=== PATIENT | female | born 1985 | race Caucasian/White ===

== ENCOUNTER 2020-08-05 21:13 | Emergency (ER) | payer MEDICAID, SELFPAY ==
[2020-08-05 21:40] VITALS: BP 142/104; PULSE 88; RESP 18; TEMP 36.6; O2SAT 97; BMI 63.9
--- NOTE | 2020-08-06 01:19 | CTR_ITS ---
PROCEDURE INFORMATION: Exam: CT Cervical Spine Without Contrast Exam date and time: 08/06/2020 1:31 AM Age: 35 years old Clinical indication: Radicular pain (radiculopathy); Cervical region; Patient HX: C/O lue radiculopathy w/o injury TECHNIQUE: Imaging protocol: Computed tomography images of the cervical spine without contrast. Radiation optimization: All CT scans at this facility use at least one of these dose optimization techniques: automated exposure control; mA and/or kV adjustment per patient size (includes targeted exams where dose is matched to clinical indication); or iterative reconstruction. COMPARISON: CT Cervical Spine wo* [id number] 03/05/2015 4:54 AM RADIATION DOSE METRICS: Total DLP (mGy-cm): 765.99 FINDINGS: Bones/joints: No acute fracture. Normal alignment. Discs/Spinal canal/Neural foramina: No significant disc protrusion. No severe spinal canal stenosis. No significant neural foraminal narrowing. Lungs: Lung apices are normal. Soft tissues: Unremarkable. CT/CT cervical spin wo con* [id number] IMPRESSION: No acute findings. Radiation Dose CTDIVOL = (mGy): DLP = 765.99 (mGy-cm)
--- NOTE | 2020-08-06 01:19 | XRR_ITS ---
PROCEDURE INFORMATION: Exam: XR Left Shoulder Exam date and time: 08/06/2020 1:38 AM Age: 35 years old Clinical indication: Pain; Shoulder; Left; Patient HX: C/O lue radiculopathy w/o injury TECHNIQUE: Imaging protocol: XR Left shoulder. Views: 2 or more views. COMPARISON: No relevant prior studies available. FINDINGS: Bones/joints: Normal. Soft tissues: Normal. XR/XR shoulder LT min 2V* [id number] IMPRESSION: No acute findings.
[2020-08-06 01:30] VITALS: RESP 20; O2SAT 98
[2020-08-06] MEDS: ondansetron 4 MG Tablet PO (01:30)
[2020-08-06] MEDS: HYDROmorphone 1 mg/mL INJ 1 mL 2 MG IM (01:30)
[2020-08-06] MEDS: predniSONE 20 mg Tablet 60 MG PO (02:32)
[2020-08-06] MEDS: HYDROcodone-acetaminophen 5-325 mg Tablet 1 TAB PO (02:35)
[2020-08-06 02:36] VITALS: BP 128/64; PULSE 84; RESP 18; O2SAT 98
--- NOTE | 2020-08-06 04:36 | ED_ITS ---
HPI - Extremity Problem General: Chief complaint: Extremity Problem,Nontraumatic Stated complaint: LEFT ARM PAIN Time Seen by Provider: 08/06/20 01:00 History of Present Illness: HPI Narrative: 35-year-old female complains that after waking up in the morning, she experienced left arm and forearm pain. She states it is a radiating pain. She has tingling in her fingertips. She denies any chest pain. The pain is reproducible on movement of the arm, and turning her neck she took ibuprofen and Tylenol and used a sling without relief. MD Complaint: extremity pain Onset (ago): hour(s) Pain Consistency: constant Location: left and upper extremity Quality: burning, stabbing and aching Radiation: distal Relieving factors: nothing Exacerbating factors: range of motion Associated symptoms: Deny chest pain, fever(s), rash or short of breath Review of Systems Const: Denies: fever(s) or chills Card: Denies: chest pain Resp: Denies: dyspnea, productive cough or non-productive cough GI: Denies: abdominal pain or vomiting Skin/Breast: Denies: rash Neuro: Reports: numbness in extremities; Denies: headache(s) or weakness in extremities PFSH ED PFSH: Social History (Updated 07/12/19 @ 17:00 by Skye Perez LPN) Smoking and tobacco status: former smoker Alcohol intake: never Physical Exam Const: GENERAL APPEARANCE: in distress and anxious ORIENTATION/CONSCIOUSNESS: Yes oriented to person, Yes oriented to place and Yes oriented to time HENMT: COMMON NORMALS: normocephalic, external ears normal and Normal external nose present HEAD & SCALP: normocephalic FACE & SINUS: normal facial exam NOSE: Normal external nose present and No nasal discharge present EXTERNAL EAR: Yes external ears normal Eye: COMMON NORMALS: Equal, round and reactive pupils present, EOMs intact bilaterally and conjunctivae normal EYELID: eyelids normal CONJUNCTIVA: Yes conjunctivae normal PUPIL: Yes Equal, round and reactive pupils present Neck/C-Spine: COMMON NORMALS: full ROM GENERAL: No tracheal deviation CERVICAL SPINE: Yes normal cervical lordosis, Yes pain with cervical ROM, Yes Cervical spine tenderness, No step off deformity, Yes Paracervical muscle tenderness, No Paracervical spasm, Yes Trapezius muscle tenderness and Yes other (Positive Spurling's test on the left) Chest: COMMONS NORMALS: normal inspection of the chest CHEST: No tenderness Resp: COMMON NORMALS: clear to auscultation bilaterally EFFORT & INSPECTION: No tachypneic, No respiratory distress, No retractions, No uses accessory muscles and No tracheal deviation AUSCULTATION: clear to auscultation bilaterally, no rhonchi, no wheezes and lung sounds not diminished Cardio: COMMON NORMALS: regular rate and regular rhythm RATE: regular rate RHYTHM: regular rhythm HEART SOUNDS: no murmurs PERIPHERAL PULSES: radial pulses present GI: INSPECTION: No abdominal distension AUSCULTATION: No Hyperactive bowel sounds present and No Hypoactive bowel sounds present PALPATION: No Guarding due to palpation present (GI) and No Rigid due to palpation PERCUSSION: no dullness to percussion and no tympanic to percussion Neuro: SENSORIUM/ORIENTATION: Yes oriented to person, Yes oriented to place and Yes oriented to time Psych: COMMON NORMALS: mental status grossly normal Skin: COMMON NORMALS: no rashes or lesions noted GENERAL SKIN EXAM: no rashes or lesions noted Course Vital Signs: Vital signs: Vital Signs Temperature 97.8 F 08/05/20 21:40 Pulse Rate 84 08/06/20 02:36 Respiratory Rate 18 08/06/20 02:36 Blood Pressure 128/64 08/06/20 02:36 Pulse Oximetry 98 08/06/20 02:36 MDM - Extremity (Nontraumatic) MDM Narrative: Medical decision making narrative: Symptoms are consistent with cervical radiculopathy. They are reproducible on Spurling's test. X-ray of the shoulder is negative. CT of the cervical spine does not reveal any severe stenosis or large disc protrusion. Her sensation is intact. She is not overly weak. She will be prescribed steroids, and pain medication for close outpatient follow-up. Discharge Plan Discharge Patient Disposition: Home Clinical Impression: Cervical radiculitis Condition: Stable Prescriptions: New Medrol (Rehan) 4 mg tablets,dose pack See Rx Instructions .ROUTE .COMPLEX Qty: 21 RF: 0 hydrocodone-acetaminophen 5-325 mg tablet 1 tab PO TID PRN (Reason: pain) Qty: 10 RF: 0 Discharge Orders: Discharge ED (Routine); Ordered 08/06/20 Ordered By: Bridger Israel Discharge Diet: Advance as tolerated Discharge Activity: Increase activity as tolerated Patient Instructions: Cervical Radiculopathy (ED), Opioid Safety Coding Level of Care Code ED Stand Up Comedian for Fannie Gómez
== END 2020-08-06 02:37 | disposition home or self-care (01) ==
PROVIDERS: Emergency Provider Emergency Medicine
DX: M54.12 Radiculopathy, cervical region (principal); Z87.891 Personal history of nicotine dependence
CPT/HCPCS: 72125; 73030; 96372; 99283; J1170; J7512; Q0162

== ENCOUNTER 2020-09-30 12:59 | Emergency (ER) | payer MEDICAID, SELFPAY ==
[2020-09-30 13:07] VITALS: BP 138/83; PULSE 88; RESP 18; TEMP 36.5; O2SAT 100; BMI 63.0
--- NOTE | 2020-09-30 13:18 | USR_ITS ---
PROCEDURE INFORMATION: Exam: US Duplex Lower Extremity Veins, Bilateral Exam date and time: 09/30/2020 1:41 PM Age: 35 years old Clinical indication: Edema, localized; Lower extremity, bilateral; Additional info: Leg edema TECHNIQUE: Imaging protocol: Real-time duplex ultrasound of the extremities with 2-D brown scale, color Doppler flow and spectral waveform analysis with image documentation. Complete exam focused on the bilateral lower extremity veins. COMPARISON: No relevant prior studies available. FINDINGS: Right deep veins: Unremarkable. The common femoral, femoral, proximal profunda femoral, popliteal, posterior tibial and peroneal veins are patent without thrombus. Normal Doppler waveforms. Normal compressibility and/or augmentation response. Right superficial veins: Saphenofemoral junction is patent without thrombus. Left deep veins: Unremarkable. The common femoral, femoral, proximal profunda femoral, popliteal, posterior tibial and peroneal veins are patent without thrombus. Normal Doppler waveforms. Normal compressibility and/or augmentation response. Left superficial veins: Saphenofemoral junction is patent without thrombus. Soft tissues: Subcutaneous edema in the calves. US/CV venous duplex [facility] [id number] IMPRESSION: No sonographic evidence of deep vein thrombosis.
--- NOTE | 2020-09-30 13:19 | W.ED.EXTPRO ---
HPI - Extremity Problem General: Chief complaint: Extremity Problem,Nontraumatic Stated complaint: BLE, Pain,swelling, difficulty walking Time Seen by Provider: 09/30/20 13:07 History of Present Illness: HPI Narrative: 35-year-old female presents emergency room complaining of swelling in her feet. About 3 days ago. She denies any fever sweats chills chest pain or shortness of breath no history of congestive heart failure. No history of DVT or PE. She states she has had this before and was related to fluid retention. MD Complaint: extremity pain and extremity swelling Onset (ago): day(s) Pain Consistency: constant Location: left, right and lower extremity Quality: aching Radiation: distal Relieving factors: immobilization and elevation Exacerbating factors: weight bearing and walking Associated symptoms: Reports arthralgias and myalgias; Deny chest pain, fever(s), rash or short of breath Review of Systems Const: Denies: fever(s) ENMT: Denies: throat pain, ear or mastoid pain, nasal discharge or nasal congestion Card: Denies: chest pain Resp: Denies: dyspnea, productive cough or non-productive cough GI: Denies: abdominal pain, nausea, vomiting, hematemesis, coffee ground emesis, diarrhea, constipation, bloating, hematochezia or melena : Denies: flank pain, difficulty voiding, dysuria, urinary frequency or urinary urgency Skin/Breast: Denies: rash PFSH ED PFSH: Social History Smoking and tobacco status: former smoker Alcohol intake: never Female Reproductive History: Spontaneous abortions: No Physical Exam Const: COMMON NORMALS: no acute distress GENERAL APPEARANCE: cooperative and comfortable ORIENTATION/CONSCIOUSNESS: Yes awake, Yes oriented to person, Yes oriented to place and Yes oriented to time HENMT: COMMON NORMALS: normocephalic, atraumatic and hearing grossly normal bilaterally HEAD & SCALP: normocephalic and atraumatic Neck/C-Spine: COMMON NORMALS: no JVD Resp: COMMON NORMALS: normal respiratory effort, No retractions, No use of accessory muscles and clear to auscultation bilaterally AUSCULTATION: clear to auscultation bilaterally Cardio: COMMON NORMALS: no JVD, regular rate, regular rhythm and No murmurs present (Cardio) RATE: regular rate RHYTHM: regular rhythm GI: COMMON NORMALS: Soft to palpation and No hepatosplenomegaly present AUSCULTATION: Yes normoactive bowel sounds PALPATION: Yes Soft to palpation, No Tenderness to palpation present (GI), No Guarding due to palpation present (GI) and Yes No hepatosplenomegaly present Extremity: GENERAL: Yes edema (2 bilateral lower extremity edema) Neuro: SENSORIUM/ORIENTATION: Yes oriented to person, Yes oriented to place and Yes oriented to time Skin: COMMON NORMALS: no rashes or lesions noted GENERAL SKIN EXAM: no rashes or lesions noted Course Vital Signs: Vital signs: Vital Signs Temperature 97.7 F 09/30/20 13:07 Pulse Rate 72 09/30/20 14:54 Respiratory Rate 25 H 09/30/20 14:54 Blood Pressure 180/90 09/30/20 14:54 Pulse Oximetry 100 09/30/20 14:54 MDM - Extremity (Nontraumatic) MDM Narrative: Medical decision making narrative: Ultrasound negative. There is no sign of cellulitis on the feet. White count is little bit elevated but she has not had any other issues no other signs of infection complaints. Gave her 60 Lasix here and discharged home on 80 Lasix p.o. daily have her follow-up with her primary care doctor next week we will also add potassium supplement 20 mEq daily. Return if she has further problems. Also encouraged her to follow-up with her primary care doctor she has what appears to be almost like a malar rash she should have further evaluation for rheumatologic disorder. Lab Data: Labs: Lab Results 09/30/20 09/30/20 09/30/20 Range/Units 13:52 14:55 14:55 WBC 17.4 H (4.0-10.0) 10^3/ uL RBC 4.22 (4.1-5.3) 10^6/u L Hgb 11.8 (11.5-15.3) g/dL Hct 39.4 (37.0-47.0) % MCV 93.4 (81-99) fL MCH 28.0 (28.0-34.0) pg MCHC 29.9 L (30.0-36.0) g/dL RDW 13.1 (12.1-15.1) % Plt Count 347 (130-400) 10^3/c mm MPV 9.9 (7.4-10.4) fL Neut % (Auto) 68.3 % Lymph % (Auto) 23.9 % [place] % (Auto) 5.4 % Eos % (Auto) 1.2 % Baso % (Auto) 0.6 % Neut # (Auto) 11.88 H (1.8-7.7) 10^3/u L Lymph # (Auto) 4.1 (0.8-4.8) 10^3/u L [place] # (Auto) 0.9 (0.2-0.9) 10^3/u L Eos # (Auto) 0.2 (0.0-0.8) 10^3/u L Baso # (Auto) 0.1 (0.0-0.1) 10^3/u L Nucleated RBC % (a uto) 0 % Nucleated RBCs # 0.0 /100WBC Sodium 137 (136-145) mmol/L Potassium 3.6 (3.5-5.1) mmol/L Chloride 104 (98-107) mmol/L Carbon Dioxide 20 L (22-29) mmol/L Anion Gap 16.6 (5-19) BUN 8 (6-20) mg/dL Creatinine 0.6 (0.5-0.9) mg/dL GFR Calculation 113.8 (90-130) mL/min Glucose 131 H (65-115) mg/dL Calculated Osmolal ity 284 L (285-295) mOsm/k g Lactate 1.0 (0.5-2.2) mmol/L Calcium 8.6 (8.5-10.5) mg/dL Total Bilirubin 0.6 (0.15-1.2) mg/dL AST 14 (0-32) U/L ALT 12 (0-33) U/L Alkaline Phosphata se 81 (35-105) IU/L Total Protein 6.7 (6.6-8.7) g/dL Albumin 3.5 (3.5-5.2) g/dL Globulin 3.2 (1.3-4.6) g/dL Discharge Plan Discharge Patient Disposition: Home Clinical Impression: Lower extremity edema Condition: Stable Prescriptions: New Lasix 80 mg tablet 80 mg PO DAILY Qty: 30 RF: 0 potassium chloride 20 mEq tablet extended release 20 meq PO DAILY Qty: 30 RF: 0 Discontinued furosemide 40 mg tablet 40 mg PO DAILY RF: 0 No Action ibuprofen 800 mg tablet 800 mg PO Q8H PRN (Reason: Pain) RF: 0 meloxicam 15 mg tablet 15 mg PO DAILY RF: 0 sucralfate 1 gram tablet 1 g PO QID RF: 0 famotidine 40 mg tablet 40 mg PO BEDTIME RF: 0 omeprazole 40 mg capsule,delayed release(DR/EC) 40 mg PO DAILY PRN (Reason: Heartburn) RF: 0 gabapentin 300 mg capsule 300 mg PO BID RF: 0 hydroxyzine pamoate 25 mg capsule 25 mg PO BEDTIME RF: 0 olopatadine 0.2 % drops 1 drp ophthalmic (eye) BID RF: 0 cetirizine-pseudoephedrine 5-120 mg tablet extended release 12 hr 1 tab PO BID RF: 0 Discharge Orders: Discharge ED (Routine); Ordered 09/30/20 Ordered By: Arian De Jesus Referrals: Charlie Stephens MD [Primary Care Provider] - Discharge Diet: Usual diet Discharge Activity: Resume usual activity Patient Instructions: Opioid Safety Coding Level of Care Code ED Receiving Team Member for Chg Fwd Exam Comprehensive
[2020-09-30 14:21] LABS: Alanine Aminotransferase 12 U/L (0-33); Albumin Level 3.5 g/dL (3.5-5.2); Alkaline Phosphatase 81 IU/L (35-105); Aspartate Amino Transferase 14 U/L (0-32); Blood Urea Nitrogen 8 mg/dL (6-20); Calcium 8.6 mg/dL (8.5-10.5); Carbon Dioxide 20 mmol/L (22-29); Chloride 104 mmol/L (98-107); Globulin 3.2 g/dL (1.3-4.6); Glomerular Filtration Rate 113.8 mL/min (90-130); Glucose 131 mg/dL (65-115); Osmolality Calculated 284 mOsm/kg (285-295); Sodium 137 mmol/L (136-145); Total Bilirubin 0.6 mg/dL (0.15-1.2); Total Protein 6.7 g/dL (6.6-8.7)
[2020-09-30 14:45] LABS: Anion Gap 16.6 (5-19); Potassium 3.6 mmol/L (3.5-5.1)
[2020-09-30 14:54] VITALS: BP 180/90; PULSE 72; RESP 25; O2SAT 100
[2020-09-30 15:09] LABS: Basophils # 0.1 10^3/uL (0.0-0.1); Basophils % 0.6 %; Eosinophils # 0.2 10^3/uL (0.0-0.8); Eosinophils % 1.2 %; Hematocrit 39.4 % (37.0-47.0); Hemoglobin 11.8 g/dL (11.5-15.3); Lymphocytes # 4.1 10^3/uL (0.8-4.8); Lymphocytes % 23.9 %; Mean Corpuscular HGB Conc 29.9 g/dL (30.0-36.0); Mean Corpuscular Volume 93.4 fL (81-99); Mean Platelet Volume 9.9 fL (7.4-10.4); Monocytes # 0.9 10^3/uL (0.2-0.9); Monocytes % 5.4 %; Neutrophils # 11.88 10^3/uL (1.8-7.7); Neutrophils % 68.3 %; Nucleated Red Blood Cells % 0 %; Platelet Count 347 10^3/cmm (130-400); Red Blood Count 4.22 10^6/uL (4.1-5.3); Red Cell Distribution Width 13.1 % (12.1-15.1); White Blood Count 17.4 10^3/uL (4.0-10.0)
[2020-09-30] MEDS: FUROsemide 10 mg/mL SDV 10mL 60 MG IVP (15:15)
[2020-09-30 15:46] VITALS: BP 180/90; PULSE 72; RESP 25; O2SAT 100
== END 2020-09-30 15:47 | disposition home or self-care (01) ==
PROVIDERS: Emergency Provider Family Medicine; PCP Internal Medicine Cardiovascular Disease
DX: R60.0 Localized edema (principal); Z87.891 Personal history of nicotine dependence
CPT/HCPCS: 36415; 80053; 83605; 85025; 93970; 96374; 99284; J1940

== ENCOUNTER → 2020-10-21 17:12 | Outpatient (BNVA) | payer MEDICAID, SELFPAY | PROVIDERS: PCP Internal Medicine Cardiovascular Disease; Visit Provider Emergency Medicine | DX: R60.9 Edema, unspecified (principal); R21 Rash and other nonspecific skin eruption; E66.9 Obesity, unspecified | CPT/HCPCS: 80053; 83880; 84443; 86160; 86162; 86235; 86255; 86376; 86431 ==

== ENCOUNTER → 2021-08-13 11:46 | Outpatient (BNVA) | payer MEDICAID, SELFPAY | PROVIDERS: PCP Internal Medicine Cardiovascular Disease; Visit Provider Emergency Medicine | DX: A08.4 Viral intestinal infection, unspecified (principal); J10.1 Influenza due to other identified influenza virus with other respiratory manifestations; R68.89 Other general symptoms and signs | CPT/HCPCS: 87400 ==

== ENCOUNTER → 2021-10-13 15:27 | Outpatient (BNVA) | payer MEDICAID, SELFPAY | PROVIDERS: PCP Internal Medicine Cardiovascular Disease | DX: R39.9 Unspecified symptoms and signs involving the genitourinary system (principal); B37.9 Candidiasis, unspecified; N39.0 Urinary tract infection, site not specified | CPT/HCPCS: 81000; 87086 ==

== ENCOUNTER → 2021-11-23 10:13 | Outpatient (BNVA) | payer MEDICAID, SELFPAY | PROVIDERS: PCP Internal Medicine Cardiovascular Disease; Visit Provider Emergency Medicine | DX: Z20.822 Contact with and (suspected) exposure to COVID-19 (principal); B34.9 Viral infection, unspecified | CPT/HCPCS: 87635 ==

== ENCOUNTER → 2022-01-03 09:38 | Outpatient (BNVA) | payer MEDICAID, SELFPAY | PROVIDERS: PCP Internal Medicine Cardiovascular Disease; Visit Provider Emergency Medicine | DX: R07.81 Pleurodynia (principal); W19.XXXA Unspecified fall, initial encounter | CPT/HCPCS: 71101 ==

== ENCOUNTER 2022-02-12 20:41 | Emergency (ER) | payer MEDICAID, SELFPAY ==
[2022-02-12 20:45] VITALS: BP 129/84; PULSE 68; RESP 18; TEMP 36.5; O2SAT 98; BMI 59.8
[2022-02-12 23:27] LABS: Adenovirus Not Detected (NOT DETECT); Chlamydia Pneumoniae Not Detected (NOT DETECT); Coronavirus 229E,HKU1,NL63,OC4 Not Detected (NOT DETECT); Human Metapneumovirus Not Detected (NOT DETECT); Human Rhinovirus/Enterovirus Not Detected (NOT DETECT); Influenza A Not Detected (NOT DETECT); Influenza A H1 Not Detected (NOT DETECT); Influenza A H1-2009 Not Detected (NOT DETECT); Influenza A H3 Not Detected (NOT DETECT); Influenza B Not Detected (NOT DETECT); Mycoplasma Pneumoniae Not Detected (NOT DETECT); Parainfluenza Virus Type 1 Not Detected (NOT DETECT); Parainfluenza Virus Type 2 Not Detected (NOT DETECT); Parainfluenza Virus Type 3 Not Detected (NOT DETECT); Parainfluenza Virus Type 4 Not Detected (NOT DETECT); Respiratory Syncytial Virus A Not Detected (NOT DETECT); Respiratory Syncytial Virus B Not Detected (NOT DETECT); SARS-COV-2 Not Detected (NOT DETECT)
== END 2022-02-12 23:17 | disposition left against medical advice (07) ==
LOC: ER 20:57
PROVIDERS: Emergency Medicine; Emergency Provider Family Medicine; PCP Internal Medicine Cardiovascular Disease
DX: Z53.21 Procedure and treatment not carried out due to patient leaving prior to being seen by health care provider (principal)
CPT/HCPCS: 80053; 84443; 85025; 86160; 86162; 86235; 86255; 86376; 86431; 87635; 99283

== ENCOUNTER 2022-02-25 12:34 | Emergency (ER) | payer MEDICAID, SELFPAY ==
[2022-02-25 12:48] VITALS: BP 156/110; PULSE 82; RESP 18; TEMP 36.5; O2SAT 98
--- NOTE | 2022-02-25 12:52 | W.ED.FEVER ---
HPI - Fever General: Chief Complaint: Fever Stated Complaint: Sore throat, fever Time Seen by Provider: 02/25/22 12:51 History of Present Illness: Patient is a 36-year-old female comes to the ED with a sore throat. Symptoms started approximately 2 days ago. She says she has had a sore throat and a fever as well. She rates her sore throat pain a 10 out of 10. Denies any known sick contacts. Denies any nasal congestion or cough. Endorses having a couple episodes of emesis since start of symptoms as well. Associated symptoms: Reports vomiting; Deny abdominal pain, flank pain, chills, chest pain, diarrhea, dysuria, headache(s), nasal congestion or nausea Review of Systems Const: Reports: fever(s); Denies: chills or fatigue Eyes: Denies: change in vision or eye discomfort ENMT: Reports: throat pain; Denies: odynophagia, nasal discharge or nasal congestion Card: Denies: chest pain, palpitations, edema, swelling of feet/ankles, dyspnea on exertion or orthopnea Resp: Denies: dyspnea, productive cough or non-productive cough GI: Reports: vomiting; Denies: abdominal pain, nausea, diarrhea, constipation or hematochezia : Denies: flank pain, dysuria or hematuria Musc: Denies: neck pain, back pain or extremity swelling Skin/Breast: Denies: rash or new lesions Neuro: Denies: headache(s), numbness in extremities or weakness in extremities PFS ED PFSH: Medical History (Updated 02/26/22 @ 16:51 by FAUSTO Villa) Hypothyroid No pertinent family history Surgical History (Updated 02/26/22 @ 16:51 by FAUSTO Villa) History of appendectomy History of cholecystectomy Social History Smoking and tobacco status: never smoked Alcohol intake: never Female Reproductive History: Date of last menstrual period: 02/24/22 Spontaneous abortions: No Physical Exam Const: COMMON NORMALS: no acute distress, patient oriented x3 and alert GENERAL APPEARANCE: cooperative and comfortable HENMT: COMMON NORMALS: normocephalic HEAD & SCALP: normocephalic MOUTH: Normal oral and palatal mucosa present THROAT: posterior oropharynx normal and uvula midline Neck/C-Spine: COMMON NORMALS: supple GENERAL: Yes normal visual inspection Resp: COMMON NORMALS: normal respiratory effort, No retractions, No use of accessory muscles and clear to auscultation bilaterally AUSCULTATION: clear to auscultation bilaterally Cardio: COMMON NORMALS: regular rate, regular rhythm, S1 normal heart sound present, S2 normal heart sound present, No gallops present (Cardio), No clicks present (Cardio), No murmurs present (Cardio) and Peripheral pulses 2+ throughout RATE: regular rate RHYTHM: regular rhythm HEART SOUNDS: S1 normal heart sound present and S2 normal heart sound present PERIPHERAL PULSES: Peripheral pulses 2+ throughout GI: COMMON NORMALS: Normal to inspection, nondistended, normoactive bowel sounds present, Soft to palpation, non-tender and no masses PALPATION: Yes Soft to palpation : COMMON NORMALS: Yes no CVA tenderness BLADDER/KIDNEY EXAM: Yes no CVA tenderness Back/Pelvis: COMMON NORMALS: no CVA tenderness Extremity: COMMON NORMALS: normal to inspection Neuro: COMMON NORMALS: patient oriented x3 SENSORIUM/ORIENTATION: Yes alert GAIT: Yes Normal gait present Skin: GENERAL SKIN EXAM: dry skin Course Vital Signs: Vital signs: Vital Signs Temperature 97.7 F 02/25/22 12:48 Pulse Rate 82 02/25/22 12:48 Respiratory Rate 18 02/25/22 12:48 Blood Pressure 156/110 02/25/22 12:48 Pulse Oximetry 98 02/25/22 12:48 Oxygen Delivery Me thod 02/25/22 12:48 MDM - Fever Medical Decision Making Patient is a 36-year-old female comes to the ED with a sore throat and fever. Symptoms started 2 days ago. Vitals are stable and patient is afebrile here in the ED. Exam is benign. Strep test is negative. Patient was diagnosed with pharyngitis and was discharged home. Told to follow-up with PCP in the next week for reevaluation. Return to ED precautions given. Patient understood and agreed with plan. Lab Data Laboratory Results Group A Strep Rapid Negative (Negative) 02/25/22 13:03 Discharge Plan Discharge Patient Disposition: Home Clinical Impression: Pharyngitis Qualifiers: Pharyngitis/tonsillitis etiology: unspecified etiology Qualified Code(s): J02.9 - Acute pharyngitis, unspecified Condition: Stable Prescriptions: New cephalexin 500 mg capsule 500 mg PO Q6H 7 Days Qty: 28 0RF No Action ibuprofen 600 mg tablet 600 mg PO Q8H PRN (Reason: pain) Qty: 30 0RF tramadol 50 mg tablet 50 mg PO Q6H PRN (Reason: pain) Qty: 20 0RF metformin 500 mg tablet 500 mg PO BID ondansetron 4 mg tablet,disintegrating 4 mg PO Q6H PRN (Reason: nausea and vomiting) Qty: 12 0RF Rx Instructions: 340b please levothyroxine 50 mcg capsule 50 mcg PO DAILY Qty: 30 1RF Discharge Orders: Discharge ED (Routine); Ordered 02/25/22 Ordered By: Charlie Li Referrals: Charlie Stephens MD [Primary Care Provider] - Discharge Diet: Regular Discharge Activity: Increase activity as tolerated Patient Instructions: Pharyngitis (ED) Activity Restrictions/Additional Instructions: Follow-up with medical provider as directed. Take medications as prescribed. Return to the ER or your medical provider if condition worsens. Please read and understand discharge instructions. Thank you for choosing [facility] for your healthcare needs today. Please realize this is an emergency room and that we are providing you with a medical screening exam and this may not be complete and all inclusive of all the testing and or work up that you may need to determine your ailment or severity of your illness. It is very important that you follow up as instructed or that you return to the Emergency Department should you have concerns or if your condition changes or worsens in any way. Coding Level of Care Code ED Reduction Plant Supervisor for Fannie Gómez Exam Comprehensive
[2022-02-25 14:18] LABS: Rapid Strep A Test Negative (Negative)
== END 2022-02-25 14:51 | disposition home or self-care (01) ==
PROVIDERS: Emergency Provider Physician Assistant; PCP Internal Medicine Cardiovascular Disease
DX: J02.9 Acute pharyngitis, unspecified (principal); Z79.84 Long term (current) use of oral hypoglycemic drugs
CPT/HCPCS: 87081; 87880; 99283

== ENCOUNTER 2022-11-04 15:00 | Emergency (ER) | payer MEDICAID, SELFPAY ==
[2022-11-04 15:04] VITALS: BP 134/83; PULSE 77; RESP 14; TEMP 36.3; O2SAT 98; BMI 49.6
[2022-11-04 16:09] LABS: HCG Qualitative Urine. Negative (Negative)
[2022-11-04 16:09] LABS: Basophils # 0.1 10^3/uL (0.0-0.1); Basophils % 0.2 %; Hemoglobin 11.6 g/dL (11.5-15.3); Lymphocytes # 2.2 10^3/uL (0.8-4.8); Lymphocytes % 8.8 %; Mean Corpuscular HGB Conc 32.2 g/dL (30.0-36.0); Mean Corpuscular Hemoglobin 29.1 pg (28.0-34.0); Mean Corpuscular Volume 90.2 fl (81-99); Mean Platelet Volume 10.8 fL (7.4-10.4); Monocytes # 1.1 10^3/uL (0.2-0.9); Monocytes % 4.6 %; Neutrophils # 21.14 10^3/uL (1.8-7.7); Neutrophils % 85.2 %; Nucleated Red Blood Cells % 0 %; Platelet Count 305 10^3/cmm (130-400); Red Blood Count 3.99 10^6/uL (4.1-5.3); Red Cell Distribution Width 13.2 % (12.1-15.1); White Blood Count 24.8 10^3/uL (4.0-10.0)
--- NOTE | 2022-11-04 16:17 | CTR_ITS ---
PROCEDURE INFORMATION: Exam: CT Head Without Contrast Exam date and time: 11/04/2022 4:23 PM Age: 37 years old Clinical indication: Pain; Weakness, extremity; Left; Headache; Additional info: L arm weakness TECHNIQUE: Imaging protocol: Computed tomography of the head without contrast. Axial, coronal and sagittal reformatted images were created and reviewed. Radiation optimization: All CT scans at this facility use at least one of these dose optimization techniques: automated exposure control; mA and/or kV adjustment per patient size (includes targeted exams where dose is matched to clinical indication); or iterative reconstruction. REPORTING DATA: Count of CT and Cardiac NM exams in prior 12 months: This patient has received 0 known CTs and 0 known cardiac nuclear medicine studies in the 12 months prior to the current study. COMPARISON: CT cervical spin wo con* [id number] 08/06/2020 1:53 AM RADIATION DOSE METRICS: Total DLP (mGy-cm): 1021 FINDINGS: Brain: No CT evidence of acute intracranial hemorrhage or acute territorial infarction. No significant mass effect or midline shift. Basal cisterns patent. Cerebral ventricles: Normal in size and configuration. Paranasal sinuses: Unremarkable. No fluid levels. Mastoid air cells: Grossly unremarkable. Bones/joints: No acute osseous abnormality. Soft tissues: Grossly unremarkable. CT/CT head wo con* [id number] IMPRESSION: No CT evidence of acute intracranial pathology.
--- NOTE | 2022-11-04 16:17 | CTR_ITS ---
PROCEDURE INFORMATION: Exam: CT Maxillofacial Without Contrast Exam date and time: 11/04/2022 4:23 PM Age: 37 years old Clinical indication: Mass, lump, or swelling; Other: Left periorbital infection; Additional info: L periorbital infection TECHNIQUE: Imaging protocol: Computed tomography of the face without contrast. Axial, coronal and sagittal reformatted images were created and reviewed. REPORTING DATA: Count of CT and Cardiac NM exams in prior 12 months: This patient has received 0 known CTs and 0 known cardiac nuclear medicine studies in the 12 months prior to the current study. COMPARISON: CT cervical spin wo con* [id number] 08/06/2020 1:53 AM RADIATION DOSE METRICS: Total DLP (mGy-cm): 542.8 FINDINGS: Orbital cavities: Orbits are normal. Globes are unremarkable. Bones/joints: No acute fracture. Paranasal sinuses: Mild left frontal sinus mucosal thickening. No air-fluid levels. Soft tissues: Unremarkable. Dental: Poor dentition. CT/CT facial bones wo con* [id number] IMPRESSION: 1. No acute pathology. 2. Additional findings, as above.
--- NOTE | 2022-11-04 16:19 | W.ED.BACK ---
HPI - Back Pain/Injury General: Chief Complaint: Back Pain/Injury Stated Complaint: possible infection Time Seen by Provider: 11/04/22 15:07 Source: patient Mode of arrival: ambulatory [facility] ED PFSH: Medical History Hypothyroid No pertinent family history Surgical History History of appendectomy History of cholecystectomy Social History Smoking and tobacco status: never smoked Alcohol intake: never Substance/Drug Use: never Female Reproductive History: Spontaneous abortions: No Course Vital Signs: Vital signs: Vital Signs Temperature 97.4 F L 11/04/22 15:04 Pulse Rate 77 11/04/22 15:04 Respiratory Rate 14 11/04/22 15:04 Blood Pressure 134/83 11/04/22 15:04 Pulse Oximetry 98 11/04/22 15:04 Oxygen Delivery Me thod Room Air 11/04/22 15:04 MDM - Back Pain/Injury Labs 11/04/22 15:55 11/04/22 15:55 Laboratory Results WBC 24.8 10^3/uL (4.0-10.0) H 11/04/22 15:55 RBC 3.99 10^6/uL (4.1-5.3) L 11/04/22 15:55 Hgb 11.6 g/dL (11.5-15.3) 11/04/22 15:55 Hct 36.0 % (37.0-47.0) L 11/04/22 15:55 MCV 90.2 fl (81-99) 11/04/22 15:55 MCH 29.1 pg (28.0-34.0) 11/04/22 15:55 MCHC 32.2 g/dL (30.0-36.0) 11/04/22 15:55 RDW 13.2 % (12.1-15.1) 11/04/22 15:55 Plt Count 305 10^3/cmm (130-400) 11/04/22 15:55 MPV 10.8 fL (7.4-10.4) H 11/04/22 15:55 Neut % (Auto) 85.2 % 11/04/22 15:55 Lymph % (Auto) 8.8 % 11/04/22 15:55 [place] % (Auto) 4.6 % 11/04/22 15:55 Eos % (Auto) 0.0 % 11/04/22 15:55 Baso % (Auto) 0.2 % 11/04/22 15:55 Neut # (Auto) 21.14 10^3/uL (1.8-7.7) H 11/04/22 15:55 Lymph # (Auto) 2.2 10^3/uL (0.8-4.8) 11/04/22 15:55 Stephens # (Auto) 1.1 10^3/uL (0.2-0.9) H 11/04/22 15:55 Eos # (Auto) 0.0 10^3/uL (0.0-0.8) 11/04/22 15:55 Baso # (Auto) 0.1 10^3/uL (0.0-0.1) 11/04/22 15:55 Nucleated RBC % (auto) 0 % 11/04/22 15:55 Nucleated RBCs # 0.0 /100WBC 11/04/22 15:55 ESR Cancelled 11/04/22 15:55 HCG, Qual Negative (Negative) 11/04/22 15:25 Discharge Plan Discharge Condition: Stable Prescriptions: No Action metformin 500 mg tablet 500 mg PO BID fexofenadine 60 mg tablet 60 mg PO BID Qty: 60 2RF olopatadine [Pataday Twice Daily Relief] 0.1 % drops 1 drp ophthalmic (eye) BID PRN (Reason: allergy eye symptoms) Qty: 5 2RF Rx Instructions: separate doses by at least 6-8 hours Referrals: Gordo Shanks, [Primary Care Provider] - Coding Level of Care Code ED Extension Service Specialist for Fannie Gómez
--- NOTE | 2022-11-04 16:21 | W.ED.GENADLT ---
Documented by User: Arian De Jesus DO 11/11/22 13:23 HPI - General Adult General: Chief complaint: Back Pain/Injury Stated complaint: possible infection Time Seen by Provider: 11/04/22 15:07 Source: patient Mode of arrival: EMS History of Present Illness: 37-year-old female presents emergency room complaining of left eye drainage and pain. She was seen on November 02 at the urgent care clinic advised to go to the ER here and be evaluated she went to [place] instead of daily to have scans and told her she had infection emergent transfer her to [facility] in [place] she wanted to drive by herself and her family take her so they discharged her then her family member declined to take her to [place] she returned yesterday to an urgent care clinic and was given 4 of dexamethasone and 40 of Solu-Medrol. She comes in today afebrile complaining of left arm tingling and weakness as well as the left eye being red and inflamed and occasionally having purulent drainage. He made a comment to the nurse that she had an infection near her spine and she is complaining of some generalized back pain she has not had any back surgeries or procedures recently. No trauma. She can still see out of her left eye Onset (ago): day(s) Location: head Relieving factors: none Exacerbating factors: none Associated symptoms: Deny chest pain, confusion, cough, diaphoresis, decreased appetite, dyspnea, fevers/chills, headache(s), malaise, nausea, rash, palpitations, seizures, short of breath, syncope, vomiting or weakness Review of Systems Const: Denies: fever(s), chills, malaise or diaphoresis ENMT: Denies: throat pain, ear or mastoid pain, nasal discharge or nasal congestion Card: Denies: chest pain, palpitations or syncope Resp: Denies: dyspnea GI: Denies: abdominal pain, nausea or vomiting : Denies: flank pain, difficulty voiding, dysuria, urinary frequency or urinary urgency Skin/Breast: Denies: rash Neuro: Denies: headache(s) or confusion PFS ED PFSH: Medical History Hypothyroid No pertinent family history Surgical History History of appendectomy History of cholecystectomy Social History Smoking and tobacco status: never smoked Alcohol intake: never Substance/Drug Use: never Female Reproductive History: Spontaneous abortions: No Physical Exam Const: GENERAL APPEARANCE: cooperative and comfortable ORIENTATION/CONSCIOUSNESS: Yes awake, Yes oriented to person, Yes oriented to place and Yes oriented to time HENMT: COMMON NORMALS: normocephalic, atraumatic and hearing grossly normal bilaterally HEAD & SCALP: normocephalic and atraumatic Eye: OTHER: Mild redness of the left eye no swelling of the eyelid no proptosis. No cervical or preauricular lymphadenopathy no drainage or matting at this time Resp: COMMON NORMALS: normal respiratory effort, No retractions, No use of accessory muscles and clear to auscultation bilaterally AUSCULTATION: clear to auscultation bilaterally Cardio: COMMON NORMALS: regular rate, regular rhythm and No murmurs present (Cardio) RATE: regular rate RHYTHM: regular rhythm GI: COMMON NORMALS: Soft to palpation and No hepatosplenomegaly present AUSCULTATION: Yes normoactive bowel sounds PALPATION: Yes Soft to palpation, No Tenderness to palpation present (GI), No Guarding due to palpation present (GI) and Yes No hepatosplenomegaly present Extremity: COMMON NORMALS: normal to inspection, capillary refill normal, no clubbing, cyanosis or edema, no calf tenderness and no pedal edema Neuro: SENSORIUM/ORIENTATION: Yes oriented to person, Yes oriented to place and Yes oriented to time Skin: COMMON NORMALS: no rashes or lesions noted GENERAL SKIN EXAM: no rashes or lesions noted Course Vital Signs: Vital signs: Vital Signs Temperature 97.4 F L 11/04/22 15:04 Pulse Rate 77 11/04/22 15:04 Respiratory Rate 14 11/04/22 15:04 Blood Pressure 134/83 11/04/22 15:04 Pulse Oximetry 98 11/04/22 18:54 Oxygen Delivery Me thod Room Air 11/04/22 18:54 MDM - General Adult Medical Decision Making Care signed out to Dr. Lutz at change of shift. See final notes for diagnosis and disposition. Patient care handoff received from Dr. De Jesus pending obtaining outside records. Outside records were obtained and reviewed. Patient was seen on 11/02/2022 at [facility]. Per review of ER provider note clinical impression was acute disturbance of sensation with numbness over the left face and left upper extremity with small corneal abrasion of left eye and findings concerning for acute periorbital cellulitis. Transfer to higher level of care was recommended for essentially further evaluation given indeterminate nature of symptoms. Patient did not end up going to [place]. Laboratory studies at that time demonstrated white blood cell count of 22.4, hemoglobin 11.6, hematocrit 36.4, platelet count 350, CRP elevated 32.5 and sed rate of 52. CTA of neck with and without contrast impression is normal arterial study of the neck. CTA brain with no large vessel occlusion or significant stenosis. Chest x-ray with no evidence of acute pulmonary disease. CT brain without contrast with no acute intracranial process. I reviewed today's imaging and laboratory studies. On my reexamination of patient I do not appreciate focal neurologic deficits other than subjective sensory changes in the left upper extremity. Pulses are symmetric and intact bilateral upper extremities. I would have expected given duration of symptoms abnormality devalued identified on imaging today and it was not. Exact etiology of patient's symptoms is unclear. She has not been on antibiotics for periorbital cellulitis. I will prescribe antibiotics in addition to eyedrops. Plan for outpatient neurology and ophthalmology follow-up as well as primary care follow-up. With regards to elevated inflammatory markers additional considerations would be referral for rheumatology evaluation if no other etiology is identified. The results of ED evaluation were discussed with the patient including prescriptions and/or symptomatic cares (if applicable) including appropriate and responsible use, followup plan, and return precautions. The patient verbalized understanding and felt safe for discharge. Taj Lutz MD Emergency Medicine Lab Data 11/04/22 15:55 11/04/22 16:[address] 11/04/22 16:17 IMPRESSION: 1. No acute pathology. 2. Additional findings, as above. Head CT 11/04/22 16:17 IMPRESSION: No CT evidence of acute intracranial pathology. Laboratory Results WBC 24.8 10^3/uL (4.0-10.0) H 11/04/22 15:55 RBC 3.99 10^6/uL (4.1-5.3) L 11/04/22 15:55 Hgb 11.6 g/dL (11.5-15.3) 11/04/22 15:55 Hct 36.0 % (37.0-47.0) L 11/04/22 15:55 MCV 90.2 fl (81-99) 11/04/22 15:55 MCH 29.1 pg (28.0-34.0) 11/04/22 15:55 MCHC 32.2 g/dL (30.0-36.0) 11/04/22 15:55 RDW 13.2 % (12.1-15.1) 11/04/22 15:55 Plt Count 305 10^3/cmm (130-400) 11/04/22 15:55 MPV 10.8 fL (7.4-10.4) H 11/04/22 15:55 Neut % (Auto) 85.2 % 11/04/22 15:55 Lymph % (Auto) 8.8 % 11/04/22 15:55 [place] % (Auto) 4.6 % 11/04/22 15:55 Eos % (Auto) 0.0 % 11/04/22 15:55 Baso % (Auto) 0.2 % 11/04/22 15:55 Neut # (Auto) 21.14 10^3/uL (1.8-7.7) H 11/04/22 15:55 Lymph # (Auto) 2.2 10^3/uL (0.8-4.8) 11/04/22 15:55 [place] # (Auto) 1.1 10^3/uL (0.2-0.9) H 11/04/22 15:55 Eos # (Auto) 0.0 10^3/uL (0.0-0.8) 11/04/22 15:55 Baso # (Auto) 0.1 10^3/uL (0.0-0.1) 11/04/22 15:55 Nucleated RBC % (auto) 0 % 11/04/22 15:55 Nucleated RBCs # 0.0 /100WBC 11/04/22 15:55 ESR 78 mm/hr (0-15) H 11/04/22 16:47 Sodium 139 mmol/L (136-145) 11/04/22 16:47 Potassium 3.5 mmol/L (3.5-5.1) 11/04/22 16:47 Chloride 101 mmol/L (98-107) 11/04/22 16:47 Carbon Dioxide 25 mmol/L (22-29) 11/04/22 16:47 Anion Gap 16.5 (5-19) 11/04/22 16:47 BUN 5 mg/dL (6-20) L 11/04/22 16:47 Creatinine 0.6 mg/dL (0.5-0.9) 11/04/22 16:47 GFR Calculation 112.5 mL/min (90-130) 11/04/22 16:47 Glucose 165 mg/dL (65-115) H 11/04/22 16:47 Calculated Osmolality 289 mOsm/kg (285-295) 11/04/22 16:47 Calcium 9.2 mg/dL (8.5-10.5) 11/04/22 16:47 Total Bilirubin 0.3 mg/dL (0.15-1.2) 11/04/22 16:47 AST 11 U/L (0-32) 11/04/22 16:47 ALT 9 U/L (0-33) 11/04/22 16:47 Alkaline Phosphatase 114 U/L (35-105) H 11/04/22 16:47 C-Reactive Protein 12.8 mg/L (0.0-4.9) H 11/04/22 16:47 Total Protein 7.5 g/dL (6.6-8.7) 11/04/22 16:47 Albumin 3.8 g/dL (3.5-5.2) 11/04/22 16:47 Globulin 3.7 g/dL (1.3-4.6) 11/04/22 16:47 HCG, Qual Negative (Negative) 11/04/22 15:25 Urine Color Light yellow (Yellow) 11/04/22 15:25 Urine Appearance Clear (CLEAR) 11/04/22 15:25 Urine pH 7 (5-7) 11/04/22 15:25 Ur Specific [place] 1.005 (1.005-1.030) 11/04/22 15:25 Urine Protein Neg (Negative) 11/04/22 15:25 Urine Glucose (UA) Norm (Normal) 11/04/22 15:25 Urine Ketones Negative (Negative) 11/04/22 15:25 Urine Blood Neg (Negative) 11/04/22 15:25 Urine Nitrate Negative (Negative) 11/04/22 15:25 Urine Bilirubin Neg (Negative) 11/04/22 15:25 Urine Urobilinogen Norm mg/dL (Negative) 11/04/22 15:25 Ur Leukocyte Esterase Negative (Negative) 11/04/22 15:25 Discharge Plan Discharge Patient Disposition: Home Clinical Impression: Preseptal cellulitis of left eye, Conjunctivitis Condition: Stable Prescriptions: New clindamycin HCl 150 mg capsule 450 mg PO Q8H 10 Days Qty: 90 0RF No Action metformin 500 mg tablet 500 mg PO BID fexofenadine 60 mg tablet 60 mg PO BID Qty: 60 2RF olopatadine [Pataday Twice Daily Relief] 0.1 % drops 1 drp ophthalmic (eye) BID PRN (Reason: allergy eye symptoms) Qty: 5 2RF Rx Instructions: separate doses by at least 6-8 hours Discharge Orders: Discharge ED (Routine); Ordered 11/04/22 Ordered By: Taj Lutz Referrals: Gordo Shanks DO [Primary Care Provider] - Discharge Diet: Usual diet Discharge Activity: Increase activity as tolerated Patient Instructions: Periorbital Cellulitis (ED) Activity Restrictions/Additional Instructions: Thank you for visiting the emergency department. You were seen and evaluated for eye pain, swelling, and arm pain. The exact cause of your symptoms is unclear however does not appear to need hospitalization at this time. You will be treated with eyedrops and antibiotics. I will message case management for neurology follow-up and ophthalmology follow-up. Please also follow-up with a primary care provider. Return for worsening symptoms, any new neurologic symptoms, or anything else that you are concerned about and feel needs emergency department evaluation. Sign Out Sign Out Data: Patient Sign Out occurred on 11/04/22 at 18:29. Patient's care was discussed, and care was transferred from to Taj Lutz MD. Coding Level of Care Code ED Blender Machine Operator for Chg Fwd Documented by User: Taj Lutz MD 11/12/22 05:16 HPI - General Adult General: Chief complaint: Back Pain/Injury Stated complaint: possible infection Time Seen by Provider: 11/04/22 15:07 [facility] ED PFSH: Medical History Hypothyroid No pertinent family history Surgical History History of appendectomy History of cholecystectomy Social History Smoking and tobacco status: never smoked Alcohol intake: never Substance/Drug Use: never Course Vital Signs: Vital signs: Vital Signs Temperature 97.4 F L 11/04/22 15:04 Pulse Rate 77 11/04/22 15:04 Respiratory Rate 14 11/04/22 15:04 Blood Pressure 134/83 11/04/22 15:04 Pulse Oximetry 98 11/04/22 18:54 Oxygen Delivery Me thod Room Air 11/04/22 18:54 MDM - General Adult Medical Decision Making Patient care handoff received from Dr. De Jesus pending obtaining outside records. Outside records were obtained and reviewed. Patient was seen on 11/02/2022 at [facility]. Per review of ER provider note clinical impression was acute disturbance of sensation with numbness over the left face and left upper extremity with small corneal abrasion of left eye and findings concerning for acute periorbital cellulitis. Transfer to higher level of care was recommended for essentially further evaluation given indeterminate nature of symptoms. Patient did not end up going to [place]. Laboratory studies at that time demonstrated white blood cell count of 22.4, hemoglobin 11.6, hematocrit 36.4, platelet count 350, CRP elevated 32.5 and sed rate of 52. CTA of neck with and without contrast impression is normal arterial study of the neck. CTA brain with no large vessel occlusion or significant stenosis. Chest x-ray with no evidence of acute pulmonary disease. CT brain without contrast with no acute intracranial process. I reviewed today's imaging and laboratory studies. On my reexamination of patient I do not appreciate focal neurologic deficits other than subjective sensory changes in the left upper extremity. Pulses are symmetric and intact bilateral upper extremities. I would have expected given duration of symptoms abnormality devalued identified on imaging today and it was not. Exact etiology of patient's symptoms is unclear. She has not been on antibiotics for periorbital cellulitis. I will prescribe antibiotics in addition to eyedrops. Plan for outpatient neurology and ophthalmology follow-up as well as primary care follow-up. With regards to elevated inflammatory markers additional considerations would be referral for rheumatology evaluation if no other etiology is identified. The results of ED evaluation were discussed with the patient including prescriptions and/or symptomatic cares (if applicable) including appropriate and responsible use, followup plan, and return precautions. The patient verbalized understanding and felt safe for discharge. Taj Lutz MD Emergency Medicine Lab Data 11/04/22 15:55 11/04/22 16:[address] 11/04/22 16:17 IMPRESSION: 1. No acute pathology. 2. Additional findings, as above. Head CT 11/04/22 16:17 IMPRESSION: No CT evidence of acute intracranial pathology. Laboratory Results WBC 24.8 10^3/uL (4.0-10.0) H 11/04/22 15:55 RBC 3.99 10^6/uL (4.1-5.3) L 11/04/22 15:55 Hgb 11.6 g/dL (11.5-15.3) 11/04/22 15:55 Hct 36.0 % (37.0-47.0) L 11/04/22 15:55 MCV 90.2 fl (81-99) 11/04/22 15:55 MCH 29.1 pg (28.0-34.0) 11/04/22 15:55 MCHC 32.2 g/dL (30.0-36.0) 11/04/22 15:55 RDW 13.2 % (12.1-15.1) 11/04/22 15:55 Plt Count 305 10^3/cmm (130-400) 11/04/22 15:55 MPV 10.8 fL (7.4-10.4) H 11/04/22 15:55 Neut % (Auto) 85.2 % 11/04/22 15:55 Lymph % (Auto) 8.8 % 11/04/22 15:55 [place] % (Auto) 4.6 % 11/04/22 15:55 Eos % (Auto) 0.0 % 11/04/22 15:55 Baso % (Auto) 0.2 % 11/04/22 15:55 Neut # (Auto) 21.14 10^3/uL (1.8-7.7) H 11/04/22 15:55 Lymph # (Auto) 2.2 10^3/uL (0.8-4.8) 11/04/22 15:55 [place] # (Auto) 1.1 10^3/uL (0.2-0.9) H 11/04/22 15:55 Eos # (Auto) 0.0 10^3/uL (0.0-0.8) 11/04/22 15:55 Baso # (Auto) 0.1 10^3/uL (0.0-0.1) 11/04/22 15:55 Nucleated RBC % (auto) 0 % 11/04/22 15:55 Nucleated RBCs # 0.0 /100WBC 11/04/22 15:55 ESR 78 mm/hr (0-15) H 11/04/22 16:47 Sodium 139 mmol/L (136-145) 11/04/22 16:47 Potassium 3.5 mmol/L (3.5-5.1) 11/04/22 16:47 Chloride 101 mmol/L (98-107) 11/04/22 16:47 Carbon Dioxide 25 mmol/L (22-29) 11/04/22 16:47 Anion Gap 16.5 (5-19) 11/04/22 16:47 BUN 5 mg/dL (6-20) L 11/04/22 16:47 Creatinine 0.6 mg/dL (0.5-0.9) 11/04/22 16:47 GFR Calculation 112.5 mL/min (90-130) 11/04/22 16:47 Glucose 165 mg/dL (65-115) H 11/04/22 16:47 Calculated Osmolality 289 mOsm/kg (285-295) 11/04/22 16:47 Calcium 9.2 mg/dL (8.5-10.5) 11/04/22 16:47 Total Bilirubin 0.3 mg/dL (0.15-1.2) 11/04/22 16:47 AST 11 U/L (0-32) 11/04/22 16:47 ALT 9 U/L (0-33) 11/04/22 16:47 Alkaline Phosphatase 114 U/L (35-105) H 11/04/22 16:47 C-Reactive Protein 12.8 mg/L (0.0-4.9) H 11/04/22 16:47 Total Protein 7.5 g/dL (6.6-8.7) 11/04/22 16:47 Albumin 3.8 g/dL (3.5-5.2) 11/04/22 16:47 Globulin 3.7 g/dL (1.3-4.6) 11/04/22 16:47 HCG, Qual Negative (Negative) 11/04/22 15:25 Urine Color Light yellow (Yellow) 11/04/22 15:25 Urine Appearance Clear (CLEAR) 11/04/22 15:25 Urine pH 7 (5-7) 11/04/22 15:25 Ur Specific [place] 1.005 (1.005-1.030) 11/04/22 15:25 Urine Protein Neg (Negative) 11/04/22 15:25 Urine Glucose (UA) Norm (Normal) 11/04/22 15:25 Urine Ketones Negative (Negative) 11/04/22 15:25 Urine Blood Neg (Negative) 11/04/22 15:25 Urine Nitrate Negative (Negative) 11/04/22 15:25 Urine Bilirubin Neg (Negative) 11/04/22 15:25 Urine Urobilinogen Norm mg/dL (Negative) 11/04/22 15:25 Ur Leukocyte Esterase Negative (Negative) 11/04/22 15:25 Discharge Plan Discharge Patient Disposition: Home Clinical Impression: Preseptal cellulitis of left eye, Conjunctivitis Condition: Stable Prescriptions: New clindamycin HCl 150 mg capsule 450 mg PO Q8H 10 Days Qty: 90 0RF No Action metformin 500 mg tablet 500 mg PO BID fexofenadine 60 mg tablet 60 mg PO BID Qty: 60 2RF olopatadine [Pataday Twice Daily Relief] 0.1 % drops 1 drp ophthalmic (eye) BID PRN (Reason: allergy eye symptoms) Qty: 5 2RF Rx Instructions: separate doses by at least 6-8 hours Discharge Orders: Discharge ED (Routine); Ordered 11/04/22 Ordered By: Taj Lutz Referrals: Gordo Shanks, DO [Primary Care Provider] - Discharge Diet: Usual diet Discharge Activity: Increase activity as tolerated Patient Instructions: Periorbital Cellulitis (ED) Activity Restrictions/Additional Instructions: Thank you for visiting the emergency department. You were seen and evaluated for eye pain, swelling, and arm pain. The exact cause of your symptoms is unclear however does not appear to need hospitalization at this time. You will be treated with eyedrops and antibiotics. I will message case management for neurology follow-up and ophthalmology follow-up. Please also follow-up with a primary care provider. Return for worsening symptoms, any new neurologic symptoms, or anything else that you are concerned about and feel needs emergency department evaluation. Sign Out Sign Out Data: Patient Sign Out occurred on 11/04/22 at 18:29. Patient's care was discussed, and care was transferred from to Taj Lutz MD. Coding Level of Care Code ED Blender Machine Operator for Fannie Gómez
[2022-11-04 17:13] LABS: Alanine Aminotransferase 9 U/L (0-33); Albumin Level 3.8 g/dL (3.5-5.2); Alkaline Phosphatase 114 U/L (35-105); Anion Gap 16.5 (5-19); Aspartate Amino Transferase 11 U/L (0-32); Blood Urea Nitrogen 5 mg/dL (6-20); C Reactive Protein 12.8 mg/L (0.0-4.9); Calcium 9.2 mg/dL (8.5-10.5); Carbon Dioxide 25 mmol/L (22-29); Chloride 101 mmol/L (98-107); Creatinine Clr Calc Pharmacy 166.6741; Globulin 3.7 g/dL (1.3-4.6); Glomerular Filtration Rate 112.5 mL/min (90-130); Glucose 165 mg/dL (65-115); Osmolality Calculated 289 mOsm/kg (285-295); Potassium 3.5 mmol/L (3.5-5.1); Sodium 139 mmol/L (136-145); Total Bilirubin 0.3 mg/dL (0.15-1.2); Total Protein 7.5 g/dL (6.6-8.7)
[2022-11-04 17:17] LABS: Erythrocyte Sedimentation Rate 78 mm/hr (0-15)
[2022-11-04 18:25] LABS: Add Urine Microscopic? NO; Charge for UA Resulting for Rev
[2022-11-04 18:28] LABS: Bilirubin Urine Neg (Negative); Blood Urine Neg (Negative); Glucose Urine UA Norm (Normal); Ketones Urine Negative (Negative); Leukocyte Esterase Urine Negative (Negative); Nitrate Urine Negative (Negative); Protein Urine Neg (Negative); Specific Gravity, Urine 1.005 (1.005-1.030); Urine Appearance Clear (CLEAR); Urine Color Light yellow (Yellow); Urobilinogen Urine Norm (Negative); pH Urine 7 (5-7)
[2022-11-04 18:54] VITALS: O2SAT 98
[2022-11-04] MEDS: morphine 4 mg/mL SDV 1 mL IVP (18:54)
[2022-11-04] MEDS: ondansetron 2 mg/ML SDV 2 mL 4 MG IVP (18:54)
[2022-11-04] MEDS: clindamycin 150 mg Capsule 450 MG PO (19:26)
[2022-11-04] MEDS: erythromycin Op Oint 1 gm 1 APPLIC EYE-LEFT (19:26)
--- NOTE | 2022-11-05 10:03 | DCPLANNER ---
Addendum entered by Maya Multani 12/06/22 09:57: Patient had a follow up appointment scheduled with neurology - patient did not attend appointment. Addendum entered by Maya Multani 11/20/22 13:17: Patient has a follow up appointment scheduled for Friday, December 02, 2022 at 9:[address] at neurology. Addendum entered by Maya Multani 11/06/22 13:36: watershed program manager called the office of Dr. Patel to confirm that facility had received patients information. watershed program manager spoke with Elizabeth and was told that patients information had been received, it will be reviewed, and clinic will call patient with appointment information. Original Note: watershed program manager had message to schedule a follow up appointment for patient with neurology and ophthalmology. watershed program manager sent patients information to the front office staff at neurology. Patients information will be printed and reviewed. Clinic will call patient with appointment information. watershed program manager faxed patients information to the office of Dr. Patel. Patients information will be reviewed. Clinic will call patient with appointment information.
== END 2022-11-04 19:51 | disposition home or self-care (01) ==
PROVIDERS: Emergency Medicine; Emergency Provider Emergency Medicine; PCP Family Medicine
DX: L03.213 Periorbital cellulitis (principal); H10.9 Unspecified conjunctivitis
CPT/HCPCS: 36415; 70450; 70486; 80053; 81003; 81025; 85025; 85651; 86140; 96374; 96375; 99285; J2270; J2405

== ENCOUNTER 2022-11-24 19:11 | Emergency (ER) | payer MEDICAID, SELFPAY ==
[2022-11-24 19:17] VITALS: BP 124/81; PULSE 104; TEMP 36.5; O2SAT 96
--- NOTE | 2022-11-24 19:17 | XRR_ITS ---
PROCEDURE INFORMATION: Exam: XR Chest Exam date and time: 11/24/2022 7:46 PM Age: 37 years old Clinical indication: Pain; Chest pressure; Additional info: Cp TECHNIQUE: Imaging protocol: Radiologic exam of the chest. Views: 1 view. COMPARISON: CR XR ribs LT mn 3V w CXR1V [id number] 01/03/2022 9:45 AM FINDINGS: Lungs: There is incomplete lung expansion and crowding of the vascular markings. There is no consolidation. Pleural spaces: No pleural effusion or pneumothorax. Heart/Mediastinum: The heart and mediastinum are normal in size. Bones/joints: Unremarkable. XR/XR chest 1V portable [id number] IMPRESSION: No acute findings.
[2022-11-24 19:36] VITALS: BP 122/72; PULSE 69; RESP 14; TEMP 36.7; O2SAT 100; BMI 49.6
--- NOTE | 2022-11-24 19:41 | ECG_ITS ---
[facility] Test Date: 2022-11-24 Pat Name: Hetal Ross Department: Room: Gender: Female Physician Credentialing Specialist: : [id number] Requested By: Valentín Omalley Order Number: [id number] Yang MD: Jennifer Penny M.D. Measurements Intervals [place] Rate: 101 P: 144 NV: 153 QRS: 189 QRSD: 92 T: 160 QT: 317 QTc: 411 Interpretive Statements ECTOPIC ATRIAL TACHYCARDIA POSSIBLE RIGHT VENTRICULAR HYPERTROPHY [SOME/ALL OF: PROMINENT R IN V1, LATE TRANSITION, RAD, ANGIE, SSS] POSSIBLE ANTERIOR MYOCARDIAL INFARCTION , OF INDETERMINATE AGE [30 ms Q WAVE IN V3/V4, OR R < 0.2 mV IN V4] Compared to ECG 03/31/2017 22:11:55 Myocardial infarct finding now present Sinus tachycardia no longer present T-wave abnormality no longer present Electronically Signed On 11-25-2022 21:14:47 CDT by Jennifer Penny M.D. [email or web address]
[2022-11-24 20:22] LABS: INR 1.04 (0.8-1.2)
[2022-11-24 20:23] LABS: Basophils # 0.1 10^3/uL (0.0-0.1); Basophils % 0.3 %; Eosinophils # 0.2 10^3/uL (0.0-0.8); Hematocrit 35.8 % (37.0-47.0); Hemoglobin 11.4 g/dL (11.5-15.3); Lymphocytes # 4.1 10^3/uL (0.8-4.8); Lymphocytes % 17.8 %; Mean Corpuscular HGB Conc 31.8 g/dL (30.0-36.0); Mean Corpuscular Hemoglobin 28.6 pg (28.0-34.0); Mean Corpuscular Volume 89.7 fl (81-99); Mean Platelet Volume 9.7 fL (7.4-10.4); Monocytes % 4.3 %; Neutrophils # 17.48 10^3/uL (1.8-7.7); Neutrophils % 75.9 %; Nucleated Red Blood Cells % 0 %; Platelet Count 301 10^3/cmm (130-400); Red Blood Count 3.99 10^6/uL (4.1-5.3); Red Cell Distribution Width 13.2 % (12.1-15.1)
[2022-11-24 20:28] LABS: Troponin(5th) Baseline 6 ng/L (0-10)
[2022-11-24 20:53] LABS: Alanine Aminotransferase 12 U/L (0-33); Albumin Level 3.9 g/dL (3.5-5.2); Alkaline Phosphatase 92 U/L (35-105); Anion Gap 17.1 (5-19); Aspartate Amino Transferase 13 U/L (0-32); Blood Urea Nitrogen 4 mg/dL (6-20); Carbon Dioxide 22 mmol/L (22-29); Chloride 94 mmol/L (98-107); Creatinine Clr Calc Pharmacy 166.6741; Globulin 2.9 g/dL (1.3-4.6); Glomerular Filtration Rate 112.5 mL/min (90-130); Glucose 124 mg/dL (65-115); NT Pro B Type Natriuretic Pept 162 pg/mL (0-125); Osmolality Calculated 268 mOsm/kg (285-295); Potassium 3.1 mmol/L (3.5-5.1); Sodium 130 mmol/L (136-145); Total Bilirubin 0.8 mg/dL (0.15-1.2); Total Protein 6.8 g/dL (6.6-8.7)
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
--- NOTE | 2022-11-24 21:17 | ECG_ITS ---
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 Measurements Intervals [place] Rate: 82 P: 22 [place]: 155 QRS: 1 QRSD: 87 T: 21 QT: 361 QTc: 424 Interpretive Statements SINUS RHYTHM MINIMAL VOLTAGE CRITERIA FOR LVH, CONSIDER NORMAL VARIANT [MEETS CRITERIA IN ONE OF: R(aVL), S(V1), R(V5), R(V5/V6)+S(V1)] NONSPECIFIC T-WAVE ABNORMALITY Compared to ECG 11/24/2022 19:41:17 T-wave abnormality now present Myocardial infarct finding no longer present Electronically Signed On 11-25-2022 21:32:34 CDT by Jennifer Penny M.D. [id number]
[2022-11-24 21:30] VITALS: BP 122/72; PULSE 69; RESP 14; TEMP 36.7; O2SAT 100
== END 2022-11-24 21:31 | disposition home or self-care (01) ==
PROVIDERS: Emergency Medicine; Emergency Provider Emergency Medicine; PCP Family Medicine
DX: S81.811A Laceration without foreign body, right lower leg, initial encounter (principal); D72.829 Elevated white blood cell count, unspecified; V49.9XXA Car occupant (driver) (passenger) injured in unspecified traffic accident, initial encounter
CPT/HCPCS: 36415; 71045; 80053; 83880; 84484; 85025; 85610; 93005; 99285

== ENCOUNTER 2022-11-27 21:23 | Inpatient (IN) | payer MEDICAID, SELFPAY ==
[2022-11-27] VITALS (7 sets, daily range): BP systolic 122–145; BP diastolic 60–95; PULSE 74–100; RESP 16–18; TEMP 36.7; O2SAT 97–100; BMI 49.6
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
[2022-11-27] MEDS: morphine 4 mg/mL SDV 1 mL IVP ×2 (22:03→23:04)
[2022-11-27 22:14] LABS: Basophils # 0.1 10^3/uL (0.0-0.1); Basophils % 0.4 %; Eosinophils # 0.2 10^3/uL (0.0-0.8); Eosinophils % 1.2 %; Hematocrit 32.6 % (37.0-47.0); Hemoglobin 10.3 g/dL (11.5-15.3); Lymphocytes # 3.5 10^3/uL (0.8-4.8); Lymphocytes % 18.9 %; Mean Corpuscular HGB Conc 31.6 g/dL (30.0-36.0); Mean Corpuscular Hemoglobin 29.3 pg (28.0-34.0); Mean Corpuscular Volume 92.6 fl (81-99); Mean Platelet Volume 9.5 fL (7.4-10.4); Monocytes # 0.8 10^3/uL (0.2-0.9); Monocytes % 4.4 %; Neutrophils # 13.94 10^3/uL (1.8-7.7); Neutrophils % 74.4 %; Nucleated Red Blood Cells % 0 %; Platelet Count 334 10^3/cmm (130-400); Red Blood Count 3.52 10^6/uL (4.1-5.3); Red Cell Distribution Width 13.5 % (12.1-15.1); White Blood Count 18.8 10^3/uL (4.0-10.0)
[2022-11-27 22:20] LABS: Erythrocyte Sedimentation Rate 34 mm/hr (0-15)
[2022-11-27 22:30] LABS: HCG Qualitative Urine. Negative (Negative)
[2022-11-27 22:34] LABS: Lactic Sepsis W/Reflex 2.4 mmol/L (0.5-2.2)
[2022-11-27 22:35] LABS: Chloride 99 mmol/L (98-107); Potassium 3.7 mmol/L (3.5-5.1); Sodium 137 mmol/L (136-145)
[2022-11-27 22:42] LABS: Amphetamines Screen Urine Positive (Negative); Barbiturates Screen Urine Negative (Negative); Benzodiazepines Screen Urine Negative (Negative); Cocaine Screen Urine Negative (Negative); Opiate Screen Urine Positive (Negative); PCP Screen Urine Negative (Negative); THC Screen Urine Negative (Negative)
[2022-11-27 23:13] LABS: Alanine Aminotransferase 10 U/L (0-33); Albumin Level 3.9 g/dL (3.5-5.2); Alkaline Phosphatase 83 U/L (35-105); Anion Gap 13.7 (5-19); Aspartate Amino Transferase 10 U/L (0-32); Blood Urea Nitrogen 11 mg/dL (6-20); C Reactive Protein 14.1 mg/L (0.0-4.9); Carbon Dioxide 28 mmol/L (22-29); Globulin 2.7 g/dL (1.3-4.6); Glomerular Filtration Rate 94.2 mL/min (90-130); Glucose 139 mg/dL (65-115); Osmolality Calculated 286 mOsm/kg (285-295); Total Bilirubin 0.5 mg/dL (0.15-1.2); Total Protein 6.6 g/dL (6.6-8.7)
[2022-11-27] MEDS: sodium chloride 0.9% 1,000 ML 999 ML IV (23:29)
[2022-11-27] MEDS: clindamycin 600 MG/50 ML PREMIX 100 MG IV (23:29)
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
[2022-11-27 23:58] LABS: Reflex Lactate Order REFLEX LACTIC ORDERD
[2022-11-28] VITALS (14 sets, daily range): BP systolic 95–114; BP diastolic 63–77; PULSE 69–91; RESP 15–18; TEMP 36.5–36.8; O2SAT 95–99
[2022-11-28 00:22] LABS: Procalcitonin 0.05 ng/mL (0-0.5)
[2022-11-28] MEDS: sodium chloride 0.9% 1,000 ML 75 ML IV (01:07)
[2022-11-28] MEDS: heparin 5,000 unit/mL INJ 1 mL 5000 UNIT SUBCUT ×2 (01:07→15:51)
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
[2022-11-28 01:14] LABS: Chol HDL Ratio 2.79 mg/dL (0.0-4.40); Cholesterol 148 mg/dL (0-200); HDL Cholesterol 53 mg/dL (60-100); LDL Cholesterol Calculated 78 mg/dL (50-129); LDL HDL Ratio 1.47 RATIO (0.00-3.22); Triglycerides 83 mg/dL (0-150)
[2022-11-28 01:15] LABS: Estmated Average Glucose 97
[2022-11-28 01:19] LABS: Add Urine Microscopic? YES; Bilirubin Urine Neg (Negative); Blood Urine Neg (Negative); Glucose Urine UA Norm (Normal); Ketones Urine Negative (Negative); Leukocyte Esterase Urine Trace (Negative); Nitrate Urine Negative (Negative); Protein Urine Neg (Negative); Specific Gravity, Urine 1.005 (1.005-1.030); Urine Appearance Clear (CLEAR); Urine Color Yellow (Yellow); Urobilinogen Urine Norm (Negative); WBC Urine 0-4 /hpf (0-5); pH Urine 7 (5-7)
[2022-11-28 01:20] LABS: Add Urine Culture? No; Bacteria Urine TRACE /hpf; Squamous Epithelial Cell Urine 0-4 /hpf (0-5)
[2022-11-28 01:32] LABS: Folate Level 3.7 ng/mL (4.8-37.3)
[2022-11-28 01:33] LABS: Iron 61 ug/dL (37-145); Thyroid Stimulating Hormone 9.11 uIU/mL (0.27-4.20); Vitamin B12 249 pg/mL (232-1245)
[2022-11-28 01:43] LABS: Percent Saturation 32.6 % (20-50); Total Iron Binding Capacity 187 mcg/dl; Unsaturated Iron Binding 126 ug/dL (112-347)
[2022-11-28] MEDS: meropenem 1,000 MG in sodium chloride 0.9% (plus) 50 ML 100 MG IV ×3 (01:49→20:55)
[2022-11-28 01:57] LABS: Basophils # 0.1 10^3/uL (0.0-0.1); Basophils % 0.5 %; Eosinophils # 0.2 10^3/uL (0.0-0.8); Eosinophils % 1.3 %; Hematocrit 34.8 % (37.0-47.0); Hemoglobin 10.7 g/dL (11.5-15.3); Lymphocytes # 3.7 10^3/uL (0.8-4.8); Mean Corpuscular HGB Conc 30.7 g/dL (30.0-36.0); Mean Corpuscular Hemoglobin 28.6 pg (28.0-34.0); Mean Platelet Volume 9.4 fL (7.4-10.4); Monocytes # 0.9 10^3/uL (0.2-0.9); Neutrophils # 13.58 10^3/uL (1.8-7.7); Neutrophils % 72.5 %; Nucleated Red Blood Cells % 0 %; Platelet Count 324 10^3/cmm (130-400); Red Blood Count 3.74 10^6/uL (4.1-5.3); Red Cell Distribution Width 13.4 % (12.1-15.1); White Blood Count 18.7 10^3/uL (4.0-10.0)
--- NOTE | 2022-11-28 01:57 | PC.PHAR ---
Pharmacokinetic dosing service Date: 11/28/22 Time: 015 Objective: Patient: Hetal Ross Floor: 251-1 Age: 37 yo Serum creatinine: 0.7 mg/dL Height: 63.0 Inches Weight (kg): 127.006 Diagnosis: Relevant medical/social history: Cultures and sensitivities: Other labs: Assessment: IBW (kg): 52.40 Dosing wt(kg): 127.006 Estimated Creatinine clearance (ml/min): 91.0 CRCL method: Cockcroft and Gault using ibw(default). Drug selected: Vancomycin Loading dose (mg): 0 Vd (liters): 114.3 (factor used: 0.9 L/kg) Trav (hr-1): 0.080 Half life (hrs): 8.66 Recommended dose: 1750 mg Interval: 12 hrs Infusion time (hrs): 1.5 Predicted peak (mcg/mL): 23.4 Predicted trough (mcg/mL): 10.10 Total body weight is being used for vancomycin dosing. Renal function is stable [ ] /unstable [ ] Recommendations: Give Vancomycin 1750 mg q 12 hrs with an expected Cpeak of 23.4 mcg/ml and an expected Ctrough of 10.10 mcg/ml Renal dosing of other antibiotics (review renal dosing of other medications and list guidelines here): Thank you for the consult, will continue to follow. Signature: Margaux Rasmussen [facility]
[2022-11-28 02:17] LABS: Lactic Acid level (Lactate) 1.8 mmol/L (0.5-2.2)
[2022-11-28 02:18] LABS: Alanine Aminotransferase 9 U/L (0-33); Albumin Level 3.8 g/dL (3.5-5.2); Alkaline Phosphatase 80 U/L (35-105); Anion Gap 14.5 (5-19); Aspartate Amino Transferase 9 U/L (0-32); Blood Urea Nitrogen 10 mg/dL (6-20); Calcium 8.6 mg/dL (8.5-10.5); Carbon Dioxide 27 mmol/L (22-29); Chloride 101 mmol/L (98-107); Creatinine Clr Calc Pharmacy 166.6741; Globulin 2.4 g/dL (1.3-4.6); Glomerular Filtration Rate 112.5 mL/min (90-130); Glucose 130 mg/dL (65-115); Magnesium 1.8 mg/dL (1.7-2.3); Osmolality Calculated 289 mOsm/kg (285-295); Potassium 3.5 mmol/L (3.5-5.1); Sodium 139 mmol/L (136-145); Total Bilirubin 0.5 mg/dL (0.15-1.2); Total Protein 6.2 g/dL (6.6-8.7)
[2022-11-28] MEDS: vancomycin 1,750 MG/350 ML PIGGYBACK 233.33 MG IV (02:29)
[2022-11-28] MEDS: TRAMadol 50 mg Tablet PO (02:29)
[2022-11-28 02:32] LABS: HIV 1 & 2 Antibody Non-Reactive (Non-Reactiv); HIV 1 & 2 Antigen Non-Reactive (Non-Reactiv)
[2022-11-28 02:40] LABS: Hepatitis A Antibody IgM Non-Reactive (Nonreactive); Hepatitis B Core AB, Total Non-Reactive (Nonreactive); Hepatitis B Surface AB 3.5 (11.5-1000); Hepatitis B Surface Antigen Non-Reactive (Nonreactive); Hepatitis C Virus Antibody Non-Reactive (Nonreactive)
[2022-11-28 03:06] LABS: Free T4 Free Thyroxine 1.26 ng/dL (0.82-1.77); T3 Free 2.5 PG/ML (2.0-4.4)
--- NOTE | 2022-11-28 04:19 | ECG_ITS ---
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 Measurements Intervals [place] Rate: 86 P: 33 IA: 168 QRS: 5 QRSD: 84 T: 29 QT: 351 QTc: 420 Interpretive Statements SINUS RHYTHM MODERATE T-WAVE ABNORMALITY, CONSIDER ANTERIOR ISCHEMIA [-0.1+ mV T-WAVE IN V3/V4] Compared to ECG 11/24/2022 21:19:53 Possible ischemia now present T-wave abnormality still present Electronically Signed On 11-28-2022 13:59:53 CDT by Mick Thomas M.D. [id number]
[2022-11-28] MEDS: hyDROXYzine 25 mg Capsule PO (04:48)
[2022-11-28 07:03] LABS: Glucose Point of Care 117 mg/dL (70-110)
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
--- NOTE | 2022-11-28 10:36 | PC.CHAP ---
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 [] Patient/Family/Request visit [] Outpatient visit [] Follow-up visit [] Physician referral [] Code/Alert [x] Routine visit [] Staff referral [] Actively dying [] Patient sleeping [] Family support [] [] Out of room [] Palliative care [] [x] Receiving care in room [] Pre-surgical visit [] Trauma [] Long length of stay [] ICU visit [] Other: Relational/Emotional Strength [x] Patient feels connected with others/family/visitors/staff [] Distress [] Loneliness/isolation [] Abandonment Spirituality of Patient [x] Person of Drea [] Attends Yarsanism of their Drea [x] Believes in Prayer [] Reads Bible or Latter Day materials [] There are Spiritual issues to be addressed Showcase Maker Interventions [x] Prayer [x] Active listening [x] Non-anxious presence [x] Spiritual/emotional support [] Crisis/trauma care [x] Spiritual counseling [] Bereavement support [] Provided bereavement packet [] Provided Bible/devotional materials [] Provided toy/stuffed animal, coloring book to patient or family member [] Provided Communion [] Anointing/[place] [] Salvation [x] Completed spiritual assessment [] Other: Impact on Illness or Injury [] Angry [] Fearful [] Anxious [] Often cries [] Exhaustion [] Unable to work [] Unable to attend sabianist [] Unable to walk/stand [] Unable to read [] Unable to drive [] Unable to eat/drink [] Unable to sleep [] Unable to be with family [] Patient intubated [] Other: Summary not sure about health had tests waiting on doctors report has a good attitude well go home Time spent with patient 10 mins
[2022-11-28] MEDS: morphine 4 mg/mL SDV 1 mL 2 MG IVP ×2 (10:42→17:59)
[2022-11-28] MEDS: famotidine 20 mg Tablet PO ×2 (10:43→17:47)
[2022-11-28] MEDS: folic acid 1 mg Tablet PO ×2 (10:43→17:47)
[2022-11-28] MEDS: cyanocobalamin 1,000 mcg Tablet 500 MCG PO (10:43)
[2022-11-28 12:09] LABS: Glucose Point of Care 129 mg/dL (70-110)
--- NOTE | 2022-11-28 15:13 | USCV_ITS ---
Hetal Ross Age: 37 Gender: F : 1985 Exam Date: 11/28/2022 15:59 Ordering Phys: Joaquin Martinez MD Technologist: Bob Carbajal Exam Location: [facility] [place] Indication: BLE SWELLING HISTORY: Lower extremity swelling. PROCEDURES: Venous duplex imaging was performed in bilateral lower extremities. The following venous structures were evaluated: common femoral vein, profunda vein, proximal portion of the greater saphenous vein, superficial femoral vein, and the popliteal vein. In addition, the posterior tibial and peroneal trunk were evaluated. Serial compression, augmentation maneuvers, and spectral Doppler flow evaluation were performed. FINDINGS: No evidence of DVT seen in any vessel visualized at this time. CONCLUSIONS No evidence of right lower extremity DVT. No evidence of left lower extremity DVT. Terry Arnold MD (Electronically Signed) Final Date: 29 November 2022 09:11 S
[2022-11-28] MEDS: vancomycin 1,750 MG/350 ML PIGGYBACK 250 MG IV (15:50)
--- NOTE | 2022-11-28 17:17 | PM.PN ---
Subjective Subjective: Patient was seen this morning, she tells me that she uses phentermine, for weight loss, that is likely why her urine toxicology was positive for amphetamines, she denies any IV drug use, denies any drug use, denies any fevers, denies any chills, no history of DVTs, right lower extremity wrapped in bandage Vitals/I&O/Wt Last Vital Signs Temp 97.7 F 11/28/22 16:00 Pulse 78 11/28/22 16:00 Resp 16 11/28/22 16:00 BP 107/71 11/28/22 16:00 Pulse Ox 98 11/28/22 16:00 O2 Del Method Room Air 11/28/22 03:44 11/28/22 11/28/22 11/28/22 06:59 14:59 22:59 Intake Total 1450 / 1450 530 / 530 Balance 1450 / 1450 530 / 530 Weight last 48 hrs Weight 134.717 kg Weight 127.006 kg Physical Exam Const: COMMON NORMALS: no acute distress and patient oriented x3 Resp: COMMON NORMALS: normal respiratory effort, No retractions, No use of accessory muscles and clear to auscultation bilaterally AUSCULTATION: clear to auscultation bilaterally Cardio: COMMON NORMALS: regular rate, regular rhythm, S1 normal heart sound present and S2 normal heart sound present RATE: regular rate RHYTHM: regular rhythm HEART SOUNDS: S1 normal heart sound present and S2 normal heart sound present GI: COMMON NORMALS: Normal to inspection, nondistended, normoactive bowel sounds present and non-tender Neuro: COMMON NORMALS: patient oriented x3 Psych: COMMON NORMALS: mental status grossly normal Skin: NARRATIVE SKIN EXAM: Multiple bruising, throughout bilateral lower extremities, bilateral arms Data 11/28/22 01:49 11/28/22 01:49 Micro: Microbiology 11/28/22 00:15 MRSA Culture - Final Nose 11/27/22 21:59 Blood Culture - Preliminary Blood SPECIMEN COLLECTED 11/27/22 22:06 Blood Culture - Preliminary Blood SPECIMEN COLLECTED A&P Assessment and plan (1) Laceration of leg, right: Qualifiers: Encounter type: initial encounter Qualified Code(s): S81.811A - Laceration without foreign body, right lower leg, initial encounter (2) Leukocytosis: Qualifiers: Leukocytosis type: unspecified Qualified Code(s): D72.829 - Elevated white blood cell count, unspecified (3) Hypothyroid: (4) Folic acid deficiency: Plan Right lower extremity cellulitis 1. ? No evidence of acute fracture. 2. ? Large soft tissue wound at the anterior aspect of the right lower leg. ?-General surgery consulted for consideration of surgical intervention -Continue broad-spectrum antibiotic therapy, vancomycin, meropenem -Monitor blood cultures, monitor for fevers -Continue levothyroxine -Continue to clinically monitor, will order venous ultrasound to evaluate for DVT -Urine toxicology screen positive for amphetamines, likely secondary to phentermine use, patient denies any drug use Full code Carb consistent cardiac diet Famotidine for PUD prophylaxis Heparin 5000 every 12 hourly for DVT prophylaxis Attestations Medical Necessity Statement*: Patient requires hospitalization for right lower extremity cellulitis Diagnoses Laceration of leg, right S81.811A Encounter type: initial encounter Leukocytosis D72.829 Leukocytosis type: unspecified Hypothyroid E03.9 Folic acid deficiency E53.8
[2022-11-28 18:02] LABS: Glucose Point of Care 126 mg/dL (70-110)
--- NOTE | 2022-11-28 18:39 | PC.NURSE ---
Pt removed $20 and gave to mother. Remaining 638.00$ in [facility].
[2022-11-28] MEDS: acetaminophen 325 mg Tablet 650 MG PO (21:06)
[2022-11-28 21:13] LABS: Glucose Point of Care 161 mg/dL (70-110)
[2022-11-28] MEDS: insulin lispro 100 unit/1 mL SUBCUT (21:52)
[2022-11-29] VITALS (10 sets, daily range): BP systolic 96–122; BP diastolic 54–73; PULSE 68–101; RESP 14–18; TEMP 36.6–36.8; O2SAT 96–100
[2022-11-29] MEDS: vancomycin 1,750 MG/350 ML PIGGYBACK 233 MG IV (01:11)
[2022-11-29] MEDS: heparin 5,000 unit/mL INJ 1 mL 5000 UNIT SUBCUT ×2 (01:11→13:03)
[2022-11-29] MEDS: meropenem 1,000 MG in sodium chloride 0.9% (plus) 50 ML 100 MG IV ×3 (04:19→20:32)
[2022-11-29 05:19] LABS: Basophils # 0.1 10^3/uL (0.0-0.1); Basophils % 0.4 %; Eosinophils # 0.2 10^3/uL (0.0-0.8); Eosinophils % 1.4 %; Hematocrit 29.7 % (37.0-47.0); Hemoglobin 8.9 g/dL (11.5-15.3); Lymphocytes # 3.9 10^3/uL (0.8-4.8); Lymphocytes % 24.1 %; Mean Corpuscular Hemoglobin 28.3 pg (28.0-34.0); Mean Corpuscular Volume 94.6 fl (81-99); Mean Platelet Volume 9.6 fL (7.4-10.4); Monocytes # 0.8 10^3/uL (0.2-0.9); Monocytes % 5.1 %; Neutrophils # 10.87 10^3/uL (1.8-7.7); Neutrophils % 67.9 %; Nucleated Red Blood Cells % 0 %; Platelet Count 282 10^3/cmm (130-400); Red Blood Count 3.14 10^6/uL (4.1-5.3); Red Cell Distribution Width 14.1 % (12.1-15.1)
[2022-11-29 05:39] LABS: Blood Urea Nitrogen 10 mg/dL (6-20); Calcium 8.4 mg/dL (8.5-10.5); Carbon Dioxide 25 mmol/L (22-29); Chloride 104 mmol/L (98-107); Glomerular Filtration Rate 138.8 mL/min (90-130); Glucose 101 mg/dL (65-115); Osmolality Calculated 287 mOsm/kg (285-295); Sodium 139 mmol/L (136-145)
[2022-11-29 05:40] LABS: Magnesium 1.7 mg/dL (1.7-2.3); Phosphorus 3.2 mg/dL (2.5-4.5)
[2022-11-29 05:44] LABS: Anion Gap 14.6 (5-19); Potassium 4.6 mmol/L (3.5-5.1)
[2022-11-29 05:45] LABS: Procalcitonin 0.05 ng/mL (0-0.5)
[2022-11-29 06:44] LABS: Glucose Point of Care 109 mg/dL (70-110)
[2022-11-29] MEDS: morphine 4 mg/mL SDV 1 mL 2 MG IVP (07:53)
[2022-11-29] MEDS: cyanocobalamin 1,000 mcg Tablet 500 MCG PO (08:14)
[2022-11-29] MEDS: folic acid 1 mg Tablet PO ×2 (08:14→17:12)
[2022-11-29] MEDS: famotidine 20 mg Tablet PO ×2 (08:14→17:12)
--- NOTE | 2022-11-29 11:15 | P.PN_ITS ---
Subjective Subjective: Patient was seen this morning, she is ambulating, no fevers, no chills, Vitals/I&O/Wt Last Vital Signs Temp 98.1 F 11/29/22 06:58 Pulse 72 11/29/22 06:58 Resp 18 11/29/22 07:53 BP 103/66 11/29/22 06:58 Pulse Ox 98 11/29/22 06:58 O2 Del Method Room Air 11/29/22 06:58 11/28/22 11/29/22 11/29/22 22:59 06:59 14:59 Intake Total 1640 / 2170 400 / 2570 120 / 120 Balance 1640 / 2170 400 / 2570 120 / 120 Weight last 48 hrs Weight 134.717 kg Weight 127.006 kg Physical Exam Const: COMMON NORMALS: no acute distress and patient oriented x3 Resp: COMMON NORMALS: normal respiratory effort, No retractions, No use of accessory muscles and clear to auscultation bilaterally AUSCULTATION: clear to auscultation bilaterally Cardio: COMMON NORMALS: regular rate, regular rhythm, S1 normal heart sound present and S2 normal heart sound present RATE: regular rate RHYTHM: regular rhythm HEART SOUNDS: S1 normal heart sound present and S2 normal heart sound present GI: COMMON NORMALS: Normal to inspection, nondistended, normoactive bowel sounds present and non-tender Extremity: COMMON NORMALS: no pedal edema NARRATIVE EXTREMITY EXAM: Right lower extremity wrapped Neuro: COMMON NORMALS: patient oriented x3 Psych: COMMON NORMALS: mental status grossly normal Data 11/29/22 04:35 11/29/22 04:35 Micro: Microbiology 11/27/22 21:59 Blood Culture - Preliminary Blood NEGATIVE TO DATE 11/27/22 22:06 Blood Culture - Preliminary Blood NEGATIVE TO DATE 11/28/22 00:15 MRSA Culture - Final Nose A&P Assessment and plan (1) Laceration of leg, right: Qualifiers: Encounter type: initial encounter Qualified Code(s): S81.811A - Laceration without foreign body, right lower leg, initial encounter (2) Leukocytosis: Qualifiers: Leukocytosis type: unspecified Qualified Code(s): D72.829 - Elevated white blood cell count, unspecified (3) Hypothyroid: (4) Folic acid deficiency: Plan Right lower extremity cellulitis 1. ? No evidence of acute fracture. 2. ? Large soft tissue wound at the anterior aspect of the right lower leg. ?-General surgery consulted for consideration of surgical intervention -Continue broad-spectrum antibiotic therapy, vancomycin, meropenem -Monitor blood cultures, monitor for fevers -Continue levothyroxine -Continue to clinically monitor, will order venous ultrasound to evaluate for DVT -Urine toxicology screen positive for amphetamines, likely secondary to phentermine use, patient denies any drug use Full code Carb consistent cardiac diet Famotidine for PUD prophylaxis Heparin 5000 every 12 hourly for DVT prophylaxis Attestations Medical Necessity Statement*: Patient requires hospitalization for cellulitis Coding Level of Care Code 16486 Moderate MDM includes number and complexity of problems actively addressed during encounter, amount and/or complexity of data reviewed/ordered and described risk of complication, morbidity or mortality of management as document ed Diagnoses Laceration of leg, right S81.811A Encounter type: initial encounter Leukocytosis D72.829 Leukocytosis type: unspecified Hypothyroid E03.9 Folic acid deficiency E53.8
[2022-11-29 11:34] LABS: Glucose Point of Care 118 mg/dL (70-110)
[2022-11-29] MEDS: HYDROcodone-acetaminophen 5-325 mg Tablet 1 TAB PO ×2 (13:04→19:19)
[2022-11-29 13:35] LABS: Vancomycin Trough 24.3 ug/mL (10-15)
[2022-11-29 16:45] LABS: Glucose Point of Care 111 mg/dL (70-110)
--- NOTE | 2022-11-29 20:33 | PC.NURSE ---
Patient requested her belongings from [facility] to give money to her family. This nurse retrieved sealed belongings bag and opened at bedside with patient and patient care nurse Broderick Alexandra RN. Patient removed $30 from belongings and gave belongings back to nurse. Belongings bag resealed with updated money amount written on front of $608. Bag taped and written with date/time and initials. Belongings bag placed back in [address] [place] [address] under patient name.
[2022-11-29 20:41] LABS: Glucose Point of Care 162 mg/dL (70-110)
[2022-11-29] MEDS: insulin lispro 100 unit/1 mL SUBCUT (21:18)
[2022-11-30] VITALS (9 sets, daily range): BP systolic 95–107; BP diastolic 61–71; PULSE 74–94; RESP 14–18; TEMP 36.6–37; O2SAT 94–98
[2022-11-30] MEDS: heparin 5,000 unit/mL INJ 1 mL 5000 UNIT SUBCUT ×2 (00:01→16:59)
[2022-11-30] MEDS: hyDROXYzine 25 mg Capsule PO (00:01)
--- NOTE | 2022-11-30 01:10 | PC.NURSE ---
Pt keeps messing with her bandage and most recently called this nurse in to re dress it due to it coming loose The bandage was redressed and secured and this nurse educated the pt to not remove the bandage due to infection risk.
[2022-11-30] MEDS: ondansetron 2 mg/ML SDV 2 mL 4 MG IVP (01:43)
[2022-11-30] MEDS: meropenem 1,000 MG in sodium chloride 0.9% (plus) 50 ML 100 MG IV ×3 (03:31→20:26)
[2022-11-30 03:45] LABS: Basophils # 0.1 10^3/uL (0.0-0.1); Basophils % 0.5 %; Eosinophils # 0.3 10^3/uL (0.0-0.8); Eosinophils % 1.5 %; Lymphocytes # 4.1 10^3/uL (0.8-4.8); Lymphocytes % 25.2 %; Mean Corpuscular Hemoglobin 28.8 pg (28.0-34.0); Mean Corpuscular Volume 92.7 fl (81-99); Mean Platelet Volume 9.3 fL (7.4-10.4); Monocytes # 0.9 10^3/uL (0.2-0.9); Monocytes % 5.6 %; Neutrophils # 10.77 10^3/uL (1.8-7.7); Neutrophils % 65.9 %; Nucleated Red Blood Cells % 0 %; Platelet Count 307 10^3/cmm (130-400); Red Blood Count 3.13 10^6/uL (4.1-5.3); Red Cell Distribution Width 13.9 % (12.1-15.1); White Blood Count 16.3 10^3/uL (4.0-10.0)
[2022-11-30 04:17] LABS: Anion Gap 12.3 (5-19); Blood Urea Nitrogen 9 mg/dL (6-20); Calcium 8.5 mg/dL (8.5-10.5); Carbon Dioxide 29 mmol/L (22-29); Chloride 102 mmol/L (98-107); Glomerular Filtration Rate 138.8 mL/min (90-130); Glucose 118 mg/dL (65-115); Magnesium 1.7 mg/dL (1.7-2.3); Osmolality Calculated 288 mOsm/kg (285-295); Phosphorus 3.1 mg/dL (2.5-4.5); Potassium 4.3 mmol/L (3.5-5.1); Sodium 139 mmol/L (136-145)
[2022-11-30 04:22] LABS: Procalcitonin 0.04 ng/mL (0-0.5)
[2022-11-30] MEDS: vancomycin 1,500 MG/300 ML PIGGYBACK 200 MG IV ×2 (04:38→22:11)
[2022-11-30 06:22] LABS: Glucose Point of Care 107 mg/dL (70-110)
--- NOTE | 2022-11-30 06:32 | ECG_ITS ---
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 Measurements Intervals [place] Rate: 77 P: 19 TX: 162 QRS: -1 QRSD: 73 T: 18 QT: 353 QTc: 400 Interpretive Statements SINUS RHYTHM LOW QRS VOLTAGE IN PRECORDIAL LEADS [QRS DEFLECTION < 1.0 mV IN CHEST LEADS] Compared to ECG 11/28/2022 04:19:57 Low QRS voltage now present T-wave abnormality no longer present Possible ischemia no longer present Electronically Signed On 12-02-2022 8:34:41 CDT by Mick Thomas M.D. [id number]
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
[2022-11-30] MEDS: folic acid 1 mg Tablet PO ×2 (09:56→17:01)
[2022-11-30] MEDS: cyanocobalamin 1,000 mcg Tablet 500 MCG PO (09:57)
[2022-11-30] MEDS: famotidine 20 mg Tablet PO ×2 (09:57→17:00)
[2022-11-30 11:17] LABS: Glucose Point of Care 118 mg/dL (70-110)
--- NOTE | 2022-11-30 12:26 | PM.PN ---
Subjective Subjective: patient was seen this morning, she is ambulating, no fever, no chills Vitals/I&O/Wt Last Vital Signs Temp 98.6 F 11/30/22 11:25 Pulse 85 11/30/22 11:25 Resp 14 11/30/22 11:25 BP 105/63 11/30/22 11:25 Pulse Ox 97 11/30/22 11:25 O2 Del Method Room Air 11/30/22 07:05 11/29/22 11/30/22 11/30/22 22:59 06:59 14:59 Intake Total 410 / 820 350 / 1170 480 / 480 Balance 410 / 820 350 / 1170 480 / 480 Weight last 48 hrs Weight 135.352 kg Physical Exam Const: COMMON NORMALS: no acute distress and patient oriented x3 Resp: COMMON NORMALS: normal respiratory effort, No retractions, No use of accessory muscles and clear to auscultation bilaterally AUSCULTATION: clear to auscultation bilaterally Cardio: COMMON NORMALS: regular rate, regular rhythm, S1 normal heart sound present and S2 normal heart sound present RATE: regular rate RHYTHM: regular rhythm HEART SOUNDS: S1 normal heart sound present and S2 normal heart sound present GI: COMMON NORMALS: Normal to inspection, nondistended, normoactive bowel sounds present and non-tender Extremity: COMMON NORMALS: no pedal edema Neuro: COMMON NORMALS: patient oriented x3 Psych: COMMON NORMALS: mental status grossly normal Skin: NARRATIVE SKIN EXAM: right lower extremity cellulitis, open wound 3x3cm, looks clean and dry Data 11/30/22 03:35 11/30/22 03:35 A&P Assessment and plan (1) Laceration of leg, right: Qualifiers: Encounter type: initial encounter Qualified Code(s): S81.811A - Laceration without foreign body, right lower leg, initial encounter (2) Leukocytosis: Qualifiers: Leukocytosis type: unspecified Qualified Code(s): D72.829 - Elevated white blood cell count, unspecified (3) Hypothyroid: (4) Folic acid deficiency: Plan Right lower extremity cellulitis 1. ? No evidence of acute fracture. 2. ? Large soft tissue wound at the anterior aspect of the right lower leg. -General surgery consulted for consideration of surgical intervention -Continue broad-spectrum antibiotic therapy, vancomycin, meropenem -Monitor blood cultures, monitor for fevers -Continue levothyroxine -Continue to clinically monitor, will order venous ultrasound to evaluate for DVT, negative for dvt -Urine toxicology screen positive for amphetamines, likely secondary to phentermine use, patient denies any drug use Full code Carb consistent cardiac diet Famotidine for PUD prophylaxis Heparin 5000 every 12 hourly for DVT prophylaxis Attestations Medical Necessity Statement*: patient requires hospital for RLE cellultis Diagnoses Laceration of leg, right S81.811A Encounter type: initial encounter Leukocytosis D72.829 Leukocytosis type: unspecified Hypothyroid E03.9 Folic acid deficiency E53.8
[2022-11-30 16:50] LABS: Glucose Point of Care 95 mg/dL (70-110)
--- NOTE | 2022-11-30 16:57 | PC.NURSE ---
Notified Dr. Maria Heparin is late. Verbal order to give Heparin now and retime.
[2022-11-30] MEDS: acetaminophen 325 mg Tablet 650 MG PO (20:22)
[2022-11-30 21:01] LABS: Glucose Point of Care 146 mg/dL (70-110)
[2022-11-30] MEDS: insulin lispro 100 unit/1 mL SUBCUT (21:23)
[2022-11-30] MEDS: diphenhydrAMINE 25 mg Capsule PO (23:01)
[2022-11-30] MEDS: HYDROcodone-acetaminophen 5-325 mg Tablet 1 TAB PO (23:11)
[2022-12-01 03:36] LABS: Basophils # 0.1 10^3/uL (0.0-0.1); Basophils % 0.4 %; Eosinophils # 0.2 10^3/uL (0.0-0.8); Eosinophils % 1.6 %; Hemoglobin 8.8 g/dL (11.5-15.3); Lymphocytes # 3.3 10^3/uL (0.8-4.8); Lymphocytes % 23.3 %; Mean Corpuscular HGB Conc 30.3 g/dL (30.0-36.0); Mean Corpuscular Hemoglobin 28.5 pg (28.0-34.0); Mean Corpuscular Volume 93.9 fl (81-99); Mean Platelet Volume 9.4 fL (7.4-10.4); Monocytes # 0.8 10^3/uL (0.2-0.9); Neutrophils # 9.49 10^3/uL (1.8-7.7); Neutrophils % 67.2 %; Nucleated Red Blood Cells % 0 %; Platelet Count 310 10^3/cmm (130-400); Red Blood Count 3.09 10^6/uL (4.1-5.3); Red Cell Distribution Width 14.1 % (12.1-15.1); White Blood Count 14.1 10^3/uL (4.0-10.0)
[2022-12-01 03:53] LABS: C Reactive Protein 3.1 mg/L (0.0-4.9); Phosphorus 3.2 mg/dL (2.5-4.5)
[2022-12-01 04:00] VITALS: BP 112/72; PULSE 73; RESP 17; TEMP 36.4; O2SAT 97
[2022-12-01] MEDS: meropenem 1,000 MG in sodium chloride 0.9% (plus) 50 ML 100 MG IV ×2 (04:06→10:21)
[2022-12-01] MEDS: heparin 5,000 unit/mL INJ 1 mL 5000 UNIT SUBCUT (04:06)
[2022-12-01 04:36] LABS: Anion Gap 12.6 (5-19); Blood Urea Nitrogen 9 mg/dL (6-20); Calcium 8.5 mg/dL (8.5-10.5); Carbon Dioxide 30 mmol/L (22-29); Chloride 102 mmol/L (98-107); Glomerular Filtration Rate 112.5 mL/min (90-130); Glucose 106 mg/dL (65-115); Osmolality Calculated 289 mOsm/kg (285-295); Potassium 4.6 mmol/L (3.5-5.1); Sodium 140 mmol/L (136-145)
[2022-12-01 04:44] LABS: Procalcitonin 0.04 ng/mL (0-0.5)
[2022-12-01] MEDS: acetaminophen 325 mg Tablet 650 MG PO (04:53)
[2022-12-01 06:08] VITALS: PULSE 86
[2022-12-01] MEDS: HYDROcodone-acetaminophen 5-325 mg Tablet 1 TAB PO (06:56)
[2022-12-01 07:17] VITALS: BP 97/6; PULSE 76; RESP 16; TEMP 36.4; O2SAT 95
[2022-12-01] MEDS: famotidine 20 mg Tablet PO (08:25)
[2022-12-01] MEDS: cyanocobalamin 1,000 mcg Tablet 500 MCG PO (08:25)
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
[2022-12-01] MEDS: folic acid 1 mg Tablet PO (08:26)
[2022-12-01 08:27] LABS: Glucose Point of Care 124 mg/dL (70-110)
[2022-12-01 10:00] VITALS: BMI 53.2
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
[2022-12-01 11:12] VITALS: BP 97/65; PULSE 77; RESP 16; TEMP 36.4; O2SAT 97
[2022-12-01 11:26] LABS: Glucose Point of Care 113 mg/dL (70-110)
[2022-12-01 13:32] VITALS: BP 97/65; PULSE 77; RESP 16; TEMP 36.4; O2SAT 97
== END 2022-12-01 12:55 | disposition home or self-care (01) | DRG 605 ==
LOC: ER 23:40 → MEDSURG 23:53
PROVIDERS: Admitting Provider Student in an Organized Health Care Education/Training Program; Emergency Provider Emergency Medicine; Visit Provider Family Medicine
DX: S81.811A Laceration without foreign body, right lower leg, initial encounter (principal); L03.115 Cellulitis of right lower limb; V49.9XXA Car occupant (driver) (passenger) injured in unspecified traffic accident, initial encounter; E11.9 Type 2 diabetes mellitus without complications; Z79.84 Long term (current) use of oral hypoglycemic drugs; E03.9 Hypothyroidism, unspecified; E53.8 Deficiency of other specified B group vitamins
CPT/HCPCS: 12345; 36415; 36416; 73590; 73700; 80048; 80053; 80061; 80202; 80306; 81001; 81025; 82607; 82746; 82962; 83036; 83540; 83550; 83605; 83735; 84100; 84145; 84439; 84443; 84481; 85025; 85651; 86140; 86705; 86706; 86709; 86803; 87040; 87340; 87641; 87806; 93005; 93970; 94664; 96372; 96374; 96375; 99232; 99253; 99285; G0378; J1644; J1815; J2185; J2270; J2405; J3370; J3372; J3490; J7030

== ENCOUNTER → 2022-12-06 14:32 | Outpatient (BNVA) | payer MEDICAID, SELFPAY | PROVIDERS: Visit Provider Thoracic Surgery (Cardiothoracic Vascular Surgery) | DX: E11.52 Type 2 diabetes mellitus with diabetic peripheral angiopathy with gangrene (principal); L97.812 Non-pressure chronic ulcer of other part of right lower leg with fat layer exposed | CPT/HCPCS: 11042; 11045; 99213 ==

== ENCOUNTER → 2022-12-23 11:22 | Outpatient (BNVA) | payer MEDICAID, SELFPAY | PROVIDERS: Visit Provider Nurse Practitioner Family | DX: N39.0 Urinary tract infection, site not specified (principal); K04.7 Periapical abscess without sinus; R81 Glycosuria | CPT/HCPCS: 81000 ==

== ENCOUNTER → 2023-03-12 12:43 | Outpatient (BNVA) | payer MEDICAID, SELFPAY | PROVIDERS: Visit Provider Nurse Practitioner Family | DX: M79.671 Pain in right foot (principal); G89.29 Other chronic pain | CPT/HCPCS: 73630 ==

== ENCOUNTER → 2023-03-24 13:28 | Outpatient (BNVA) | payer MEDICAID, SELFPAY | PROVIDERS: Visit Provider Podiatrist Foot & Ankle Surgery | DX: S93.321A Subluxation of tarsometatarsal joint of right foot, initial encounter; X58.XXXA Exposure to other specified factors, initial encounter | CPT/HCPCS: 73630; 99203 ==